=== PATIENT | male | born 1950 | race Caucasian/White ===

== ENCOUNTER → 2016-11-03 | Outpatient (CLI) | payer BC ==
[~2016-11-03] MED LIST: 3N1 COMMODE MC; CEFT2VIA11 IV; CHOL200043 PO; CYAN100018 PO; GABA300C16 PO; LOV30I SC; NIAC500T81 PO; OXYC-481 PO; VALS160T20 PO; WALK1EAC23 MC
--- NOTE | 2016-11-03 17:15 | RADRPT ---
PROCEDURE: XR Left hip and pelvis. CLINICAL INDICATION: Left hip pain and pelvic pain. TECHNIQUE: 3 views. Frontal pelvis. Frontal and lateral left hip. COMPARISON: 07/17/2016. FINDINGS: There are bilateral total hip arthroplasties. These appear satisfactory. There is a healing fractu re of the upper shaft of the left femur overlying the femoral stem of the left hip arthroplasty. Ce rclage wires are noted proximal to the fracture. There is no other fracture and there is no dislocation. The upper pelvis is not included on the images. There is no lytic or blastic lesion. IMPRESSION: 1. Bilateral total hip arthroplasties. 2. Fracture of the proximal shaft of the femur with mild healing noted at this site. 3. Upper pelvis not included on the images. RPTAT: QQ .Shivam Davenport MD, Date Time Electronically viewed and signed by .Shivam Davenport MD, MD on 11/03/2016 17:15 .R/
== END | disposition home or self-care (01) ==
LOC: HKI 15:41
PROVIDERS: ATTEND Orthopaedic Surgery
DX: T84.52XD Infection and inflammatory reaction due to internal left hip prosthesis, subsequent encounter (principal); Y83.8 Other surgical procedures as the cause of abnormal reaction of the patient, or of later complication, without mention of misadventure at the time of the procedure; Z79.01 Long term (current) use of anticoagulants
CPT/HCPCS: 73502; G0463

== ENCOUNTER → 2017-01-02 | Outpatient (CLI) | payer BC ==
--- NOTE | 2017-01-02 16:50 | RADRPT ---
PROCEDURE: XR pelvis. CLINICAL INDICATION: Hip pain TECHNIQUE: AP pelvis available for review. COMPARISON: 11/03/2016 FINDINGS: There are bilateral total hip replacements. There are cerclage wires surrounding the left femoral sh aft. There is normal mineralization, architecture and alignment. There is no evidence of loosening of th e prosthesis. There is no evidence of hardware failure. No fractures, dislocation or osseous lesions are identified. The joints are unremarkable. There are normal soft tissues. IMPRESSION: Bilateral total hip replacements. Otherwise unremarkable examination. RPTAT: HGDB .Edmund Rocha MD, MD Date Time Electronically viewed and signed by .Edmund Rocha MD, on 01/02/2017 16:50 .B/
--- NOTE | 2017-01-02 16:54 | RADRPT ---
PROCEDURE: XR left hip. CLINICAL INDICATION: Hip pain TECHNIQUE: AP and lateral views available for review. COMPARISON: None available FINDINGS: There is a left total hip replacement. There are cerclage wires surrounding the proximal femur. The re is no evidence of loosening of the prosthesis. There is no evidence of hardware failure. There is no change in the mild healing of the fracture of the upper shaft of the left femur distal to the ce rclage wires. No osseous lesions are present. The joints are unremarkable. The soft tissues are u nremarkable. IMPRESSION: No change in left total hip replacement. No change in cerclage wire surround proximal femur. No change in mild healing of the fracture of the upper shaft of the left femur distal to the cerclag e wires. RPTAT: HGDB .Edmund Rocha MD, Date Time Electronically viewed and signed by .Edmund Rocha MD, on 01/02/2017 16:53 .B/
== END | disposition home or self-care (01) ==
LOC: HKI 15:32
PROVIDERS: ATTEND Orthopaedic Surgery
DX: Z48.89 Encounter for other specified surgical aftercare (principal); T84.52XD Infection and inflammatory reaction due to internal left hip prosthesis, subsequent encounter; Z96.642 Presence of left artificial hip joint
CPT/HCPCS: 72170; 73502; G0463

== ENCOUNTER → 2017-02-20 | Outpatient (CLI) | payer BC ==
[~2017-02-20] MED LIST changes: +ENOX30DI2 SC; -LOV30I SC
--- NOTE | 2017-02-20 17:19 | RADRPT ---
PROCEDURE: XR pelvis/left hip. CLINICAL INDICATION: Hip pain TECHNIQUE: AP pelvis/AP and lateral left hip views available for review. COMPARISON: 08/15/2016 FINDINGS: There are bilateral total hip replacements. There is a long left femoral stem. There are cerclage wi res surrounding the proximal left femur. There is no change in the nondisplaced lateral left mid fem oral fracture. There is no evidence of loosening of the prosthesis. There is no evidence of hardware failure. The joints are unremarkable. There are normal soft tissues. IMPRESSION: Bilateral total hip replacements. No change in the nondisplaced lateral left femoral fracture Otherwise unremarkable examination. RPTAT: HGDB .Edmund Rocha MD, Date Time Electronically viewed and signed by .Edmund Rocha MD, on 02/20/2017 17:18 .B/
== END | disposition home or self-care (01) ==
LOC: HKI 16:00
PROVIDERS: ATTEND Orthopaedic Surgery
DX: T84.52XD Infection and inflammatory reaction due to internal left hip prosthesis, subsequent encounter (principal); Y79.2 Prosthetic and other implants, materials and accessory orthopedic devices associated with adverse incidents; Z96.643 Presence of artificial hip joint, bilateral
CPT/HCPCS: 73502; G0463

== ENCOUNTER → 2017-03-09 | Outpatient (CLI) | payer BC ==
[~2017-03-09] MED LIST changes: +MUPI15CR9 TOP; +PEN500 PO
== END | disposition home or self-care (01) ==
LOC: HKI 10:03
PROVIDERS: ATTEND Orthopaedic Surgery
DX: T84.52XD Infection and inflammatory reaction due to internal left hip prosthesis, subsequent encounter (principal); Z96.642 Presence of left artificial hip joint; Z96.651 Presence of right artificial knee joint
CPT/HCPCS: G0463

== ENCOUNTER 2017-03-19 09:07 | Inpatient (IN) | payer BC ==
[~2017-03-19] VITALS: Ht 177.8 cm; Wt 99.8 kg
[2017-03-19] VITALS (64 sets, daily range): BP systolic 75–129; BP diastolic 44–69; PULSE 70–87; RESP 10–22
[~2017-03-19 09:07] MED LIST changes: +BUPIVACAINE LIPOSOME/PF 266 MG/20 ML VIAL INFIL SCH; +CEFAZOLIN 1 GM INJ ONE; +EXPAREL NOTE (BUPIVICAINE LIPOSOMAL) XX SCH; +LACTATED RINGER'S 1,000 ML IV SCH; -MUPI15CR9 TOP; +ONDANSETRON 4 MG INJ IV SCH; +PAIN COCKTAIL - VANCOMYCIN IRR SCH; -PEN500 PO; +PHENYLephrine (100 MCG/ML) 5ML SYG ONE; +PREGABALIN 300 MG PO X1 PO SCH; +TRANEXAMIC ACID 1,000 MG in SOD CHLORIDE 0.9% 100 ML IVPB SCH; +TRANEXAMIC ACID 1,000 MG in SOD CHLORIDE 0.9% 90 ML IV SCH; +VANCOMYCIN 1 GM/NS 250 ML X1 BEFORE INCISION IVPB SCH; +oxyCODONE (CR) 10 MG TAB [oxyCONTIN] X1 DOSE PO SCH; +traMADOL 50 MG TAB X 1 DOSE PO SCH
[2017-03-19] MEDS ORDERED: CEFAZOLIN 1 GM INJ ONE ×2 (09:56→17:13)
[2017-03-19] MEDS ORDERED: ONDANSETRON 4 MG INJ ONE (09:56)
[2017-03-19] MEDS ORDERED: MIDAZOLAM 1 MG/ML 2 ML INJ ONE (09:56)
[2017-03-19] MEDS ORDERED: GLYCOPYRROLATE 0.4 MG INJ ONE (09:56)
[2017-03-19] MEDS ORDERED: ROCURONIUM 50 MG INJ ONE (09:56)
[2017-03-19] MEDS ORDERED: PROPOFOL 20 ML ONE (09:56)
[2017-03-19] MEDS ORDERED: FENTAnyl 50 MCG/ML VIAL ONE (09:56)
[2017-03-19] MEDS ORDERED: NEOSTIGMINE 3 MG/3 ML SYRINGE ONE (09:56)
[2017-03-19] MEDS ORDERED: DEXAMETHASONE 4 MG/ML 1 ML INJ ONE (09:57)
[2017-03-19] MEDS ORDERED: ETOMIDATE 20 MG INJ ONE (09:57)
[2017-03-19] MEDS ORDERED: PROPOFOL 100 ML ONE (09:57)
[2017-03-19] MEDS ORDERED: PEN500 PO (10:05)
[2017-03-19] MEDS ORDERED: MUPI15CR9 TOP (10:06)
--- NOTE | 2017-03-19 11:24 | HPN ---
Date/Time of Note Date/Time of Note DATE: 03/19/17 TIME: 11:23 Interval H&P Admission Note Pt. seen H&P reviewed: No system changes No change from H&P on 03/12/17 by GONZALO Lehman MD Mar 19, 2017 11:24
[2017-03-19] MEDS ORDERED: POLYMYXIN B 500000 UNIT INJ ONE (11:41)
[2017-03-19] MEDS ORDERED: SODIUM CL BACTERIOSTATIC 30 ML INJ ONE (11:41)
[2017-03-19] MEDS ORDERED: TOBRAMYCIN 1.2 GM POWDER ONE (11:41)
[2017-03-19] MEDS ORDERED: VANCOMYCIN 1 GM INJ ONE (11:41)
[2017-03-19] MEDS ORDERED: HEPARIN 1000 UNITS/ML 10 ML INJ ONE (11:42)
[2017-03-19] MEDS ORDERED: BACITRACIN 50000 UNITS INJ ONE (11:56)
[2017-03-19] MEDS: traMADol 50 MG TAB PO SCH ×2 (12:00→18:00)
[2017-03-19] MEDS ORDERED: TRIMETHOBENZAMIDE 100 MG/ML VIAL IM PRN (13:30)
[2017-03-19] MEDS ORDERED: DIPHENHYDRAMINE 50 MG INJ IV PRN (13:30)
[2017-03-19] MEDS ORDERED: OXYCODONE/ACETAMINOPHEN (5/325) TAB PO PRN ×2 (13:30)
[2017-03-19] MEDS ORDERED: EPHEDrine SULFATE 50 MG/5 ML SYG IV PRN (13:30)
[2017-03-19] MEDS ORDERED: ONDANSETRON 4 MG INJ IV PRN ×2 (13:30→19:00)
[2017-03-19] MEDS ORDERED: LABETALOL HCL 20MG INJ IV PRN (13:30)
[2017-03-19] MEDS ORDERED: HYDROmorphONE (0.2 MG/ML) 10ML SYG IV PRN ×3 (13:30)
[2017-03-19] MEDS ORDERED: MEPERIDINE 25 MG INJ IV PRN (13:30)
[2017-03-19] MEDS ORDERED: hydrALAzine 20 MG INJ IV PRN (13:30)
[2017-03-19] MEDS ORDERED: FENTAnyl 50 MCG/ML VIAL IV PRN ×3 (13:30)
[2017-03-19] MEDS ORDERED: MIDAZOLAM 1 MG/ML 2 ML INJ IV PRN (13:30)
[2017-03-19] MEDS ORDERED: ALBUMIN HUMAN 5% 500 ML ONE (17:13)
[2017-03-19] MEDS ORDERED: ALBUMIN HUMAN 25% 100 ML ONE (17:13)
[2017-03-19] MEDS: LACTATED RINGER'S 1,000 ML IV SCH (18:57)
[2017-03-19] MEDS ORDERED: MAGNESIUM HYDROXIDE 30ML CUP PO PRN (19:00)
[2017-03-19] MEDS ORDERED: HYDROCODONE/APAP (5/325) TAB PO PRN (19:00)
[2017-03-19] MEDS ORDERED: HYDROmorphONE 1 MG/ML SYG IV PRN (19:00)
[2017-03-19] MEDS ORDERED: BISACODYL 10 MG SUPP PR PRN (19:00)
[2017-03-19] MEDS ORDERED: NACL 0.9% 3 ML SYG IV SCH (19:00)
[2017-03-19] MEDS ORDERED: NA PHOSPHATE/BIPHOS 133 ML ENEMA PR PRN (19:00)
[2017-03-19] MEDS ORDERED: DIPHENHYDRAMINE 25 MG CAP PO PRN (19:00)
--- NOTE | 2017-03-19 19:32 | OPR ---
Date/Time of Note Date/Time of Note DATE: 03/19/17 TIME: 19:30 Operative Report Free Text/Dictation Dictation # [id number] Preoperative Diagnosis S/P Removal of Infected Left Revision JUANCARLOS and placement of ABX PMMA Spacer Postoperative Diagnosis Same Operation/Procedure Performed I&D Left Hip, Removal of ABX PMMA Spacer, and Reimplantation Left JUANCARLOS with allograft supplementation Surgeon: GONZALO MCCRACKEN MD credentialing assistant: ANIA ARCOS PA-C Anesthesia: general, spinal Estimated Blood Loss: other Specimens Aerobic and anaerobic cultures x 5 Grafts/Implants Depuy Pinnace Cup, Biomet DEBO Stem Complications: None GONZALO MCCRACKEN MD Mar 19, 2017 19:32
--- NOTE | 2017-03-19 19:37 | PN ---
Date/Time of Note Date/Time of Note DATE: 03/19/17 TIME: 19:32 Assessment/Plan Lines/Catheters IV Catheter Type (from Nrsg): Saline Lock Assessment/Plan Assessment/Plan Stable in PACU, s/p left hip I&D, removal of abx spacer, re-implantation left JUANCARLOS -continue Vancomycin IV and penicillin PO -pain meds as needed -Comadin 3mg tonight -SCDs BLE for DVT prophylaxis -check AM labs including INR -posterior hip precautions -OOB with PT - TDWB -remove marmolejo in AM XR of the left hip shows good alignment. The strut is in appropriate position. No fractures or dislocations identified Subjective 24 Hr Interval Summary Stable in PACU. Denies pain. Moving all extremities. Drowsy from anesthesia. Exam/Review of Systems Vital Signs Vitals Vital Signs Date Time Temp Pulse Resp B/P Pulse Ox O2 Delivery O2 Flow Rate FiO2 03/19/17 19:16 Nasal Cannula 4.0 03/19/17 19:10 98.7 03/19/17 11:01 72 16 129/69 93 Exam Free Text/Dictation Hemovac: minimal Dressing dry Incision clean, dry, and intact without redness or drainage 5/5 Quadriceps, Tibialis Anterior, EHL, Gastroc, Soleus, Peroneals Normal sensation Palpable DT/PT, CR <2 sec No distal edema ANIA ARCOS PA-C Mar 19, 2017 19:37
[2017-03-19 19:46] LABS: HEMATOCRIT 26.9 % (42.0-52.0); HEMOGLOBIN 9.1 g/dl (14.0-18.0)
--- NOTE | 2017-03-19 19:55 | RADRPT ---
PROCEDURE: XR Pelvis. CLINICAL INDICATION: Pelvic pain. Postoperative evaluation TECHNIQUE: Single AP view of the pelvis was obtained. COMPARISON: 03/18/2017 FINDINGS: A right hip arthroplasty is incompletely visualized. A left hip arthroplasty is also seen. Radiopa que structures are seen within the surgical bed. Skin odalys are seen with soft tissue air. The r emaining soft tissue structures are intact. IMPRESSION: 1. Status post left hip arthroplasty with the suggestion of a antibiotic beads an acute postoperati ve changes. 2. Right hip arthroplasty identified. RPTAT: HPNM Physician Cyndy Date Time Electronically viewed and signed by Physician Cyndy on 03/19/2017 19:54 /
--- NOTE | 2017-03-19 19:58 | RADRPT ---
PROCEDURE: XR Hip. CLINICAL INDICATION: Left hip pain. Postoperative evaluation TECHNIQUE: 2 views of the left hip were obtained. COMPARISON: 01/02/2017 FINDINGS: A left hip arthroplasty is seen once again. Additional cerclage wires are seen in the distal portion of the hip arthroplasty. No acute fracture or dislocation is seen. Radiopaque structures are seen along the surgical bed as well as a drain. Skin odalys are seen with soft tissue air. The osseous structures are well mineralized. The remaining soft tissue structures are intact. IMPRESSION: Left hip arthroplasty identified with the suggestion of antibiotic beads with acute postoperative ch anges. RPTAT: HPNM Physician Cyndy Date Time Electronically viewed and signed by Physician Cyndy on 03/19/2017 19:57 /
[2017-03-19] MEDS ORDERED: WARFARIN 3 MG TAB PO ONE (20:00)
[2017-03-19 20:47] LABS: CALCIUM 8.5 mg/dl (8.4-10.2); CREATININE 1.07 mg/dl (0.61-1.24); POTASSIUM 4.6 mmol/L (3.5-5.1)
[2017-03-19] MEDS ORDERED: VANCOMYCIN 1 GM (PMX) 250 ML IVPB SCH (21:00)
--- NOTE | 2017-03-19 21:56 | OPR ---
DATE OF OPERATION: 03/19/2017 PREOPERATIVE DIAGNOSIS: Status post removal of infected revision left total hip arthroplasty and pl acement of antibiotic-impregnated cement spacer. POSTOPERATIVE DIAGNOSIS: Status post removal of infected revision left total hip arthroplasty and p lacement of antibiotic-impregnated cement spacer. OPERATION PERFORMED: 1. Irrigation and debridement, left hip. 2. Removal of antibiotic-impregnated cement spacer. 3. Reimplantation left total hip arthroplasty with allograft supplementation. SURGEON: Gonzalo Koo MD WATCH COMMANDER: BULMARO Barbosa COMPONENTS USED: DePuy size 60 mm Gription Weldon cup, two 6.5 mm screws, 60/40 neutral Altrx bharat yethylene liner, Biomet DEBO 20 x 250 mm STS ETO stem, D x 60 standard proximal cone body, 40+9 cob alt chrome femoral head, multiple Tamika cerclage cables, allograft femoral strut. ANESTHESIA: Spinal plus general endotracheal intubation plus periarticular injection. ANESTHESIOLOGIST: Dr. Marley. ESTIMATED BLOOD LOSS: 800 mL. INTRAVENOUS FLUIDS: 5 liters crystalloid, 300 mL of autologous Cell Saver blood, 500 mL of albumin. SPECIMENS: Aerobic and anaerobic culture of joint fluid x2, acetabular synovial tissue, femoral can al tissue x2. DRAINS: Hemovac x2. COMPLICATIONS: None. DISPOSITION: The patient tolerated the procedure well and was taken to the recovery room in stable condition. 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 He had a revision about a couple of years ago that subsequently became infected. I removed the revision stem and placed an antibiotic impregnated cement spacer, about 8 months ago. He was treated with intravenous antibiotics and then oral penicillin for the last 6 mon ths. His serologic markers normalized. He was felt to be ready to be reimplanted. He was cleared by medicine and vascular surgery and the infectious disease specialist. He had a previous pulmonary embolism, but has been off anticoagulants for many months. He has an IVC filter in place. The ris ks of the surgery were explained to include but not be limited to bleeding and possible need for blo od transfusion, infection, pain, stiffness, neurovascular injury, possible numbness, weakness, and/o r paralysis anywhere from the hip down to the toes, fracture, malunion, nonunion, wound healing prob lems, leg length discrepancy, instability, dislocation, need for additional future surgery including removal of the implant and permanent resection arthroplasty, possible loss of limb including hip di sarticulation, blood clots, pulmonary embolism, and anesthetic complications such as heart attack, s troke, GI bleed, pneumonia, and/or . Ample time was allowed for the patient to ask questions, all of which were addressed and answered. He understood the risks involved and wished to proceed. Informed consent was signed prior to the procedure. PROCEDURE: The left hip was initialed with a marking pen in the preoperative holding area to identi fy the correct operative site. The patient was then brought to the operating room and transferred f rom the [facility] to the operating room table where he was administered a spinal anesthetic an d then anesthetized and intubated. He was given 1 gram of vancomycin and 3 grams of intravenous Anc ef within 1 hour prior to incision. Giraldo catheter was placed. A timeout was performed to confirm the left side was the correct operative site. He was turned in lateral decubitus position with the left side up. An axillary roll was placed under the right chest wall. [facility] and all bony prominences were well padded. The left hip and lower extremity were prepped and d raped in usual sterile fashion. The previous posterolateral scar was excised. This was carried down to subcutaneous tissue and fat with sharp dissection. The iliotibial band and gluteus luis a muscle fascia were incised along the length of the wound. The gluteus luis a muscle fibers were bluntly split. The posterior capsule and short external rotator sleeve had been scarred down and was taken down off the posterior aspect of the greater trochanter and tagged with #1 PDS suture. The synovial fluid was inspected and noted to be normal in color and consistency and was swabbed for aerobic and anaerobic culture x2. The re mainder of the soft tissue sleeve was elevated off the posterior aspect of the greater trochanter an d femur. The vastus lateralis was elevated off the posterior intermuscular septum. The perforating arteries were identified and tied off with 2-0 silk suture and ligated. The vastus lateralis was e levated off the femur. The previous 4 cables were cut and removed. The defect laterally was visual ized. The head was dislocated from the acetabulum and the cement spacer was removed from the femora l canal. Fibrous tissue was removed with the Sang back front desk administrator instruments. There was a dist al cement plug that had broken off on the cement spacer that I had to retrieve. The proximal portio n of the femur was moving relative to the distal femur, suggesting that the defect had fractured and was not healed. I freed up the proximal segment to gain more direct access towards the distal aspe ct of the femur. The [place] Ultra-Drive was used to thread a guide pin into the distal cement fragm ent and then I backslapped this out. I then placed a beaded guidewire down into the distal femur an d overreamed with flexible reamers up to 18 mm, getting good chatter. At this point, attention was turned towards the acetabulum. The retractors were placed around the acetabulum, the polyethylene l iner was removed with an osteotome, and the cement was removed with osteotomes. I then reamed the a cetabulum, going up from a 57 reamer to a 62 reamer. A 64 mm Gription Weldon cup was opened and i mpacted into the acetabulum and sat flush circumferentially, getting a good bite. This had about 45 degrees of abduction and 20 to 25 degrees of anteversion. Two 6.5 screws were drilled and filled t o appropriate length, getting a good bites. A trial liner was placed into position. The attention was turned back towards the femur. I then overreamed with the [employer] tapered reamers up to a size 2 0. I then opened the size 20 x 250 bowed STS ETO stem and impacted this into the femur, keeping the kink of the bow anterior relative to the femoral cortex. This was impacted such that the proximal etch marking was at 60 relative to the tip of the greater trochanter. This got excellent bite. C-a rm imaging confirmed that the stem was in good position on AP and lateral views. Prior to placing t he stem, I passed 2 cables prophylactically around the femur at the apex of the bow to prevent any p ossible fracture. At this point, a trial 60 x D standard body was placed on the stem, keeping it an teverted 20 to 25 degrees relative to the tibia pointing towards the ceiling. A 40[address] d on the trunnion and reduced the acetabulum. Hip was taken through range of motion and was quite s table. The hip had 110 degrees of flexion. At 90 degrees of flexion and neutral abduction, the hip was stable posteriorly to 80 degrees of internal rotation. In the position of sleep, it was stable to 80 degrees of internal rotation. The hip came to full extension with no posterior impingement o r anterior instability. The Ran[place]at sign showed a combined forward flexion of 45 degrees. Leg chai ths were palpated to be equal. At this point, the trial was dislocated, the trial liner removed. A n apex hole eliminator was placed. The real polyethylene liner was opened and impacted into the brad tabulum and sat flush circumferentially. The trial body was removed and the real body was opened an d impacted onto the stem and this was kept anteverted about 20 to 25 degrees relative to the tibia p ointing towards the ceiling. This was tightened down and torqued off with the setscrew. The trunni on was irrigated and dried and the real 40+9 cobalt chrome head was impacted on the trunnion and red uced in the acetabulum. The hip was taken through a range of motion and had the same range of motio n and stability with the trials. The entire wound was irrigated with Betadine, peroxide, and antibi otic saline pulsatile lavage. Please note that prior to placing any of the real components I had al so irrigated another round with Betadine, peroxide, and antibiotic saline pulsatile lavage. At this point, the lateral defect of the femur was inspected and packed with demineralized bone matrix and then an allograft femoral strut was opened and fashioned and placed over the lateral cortex of the f emur to span this defect and tensioned with 2 cables proximal and distal to the defect. Another cab le was passed around the proximal femur where the extended trochanteric osteotomy had previously bee n to ensure that this did not separate. At this point, Stimulan beads with vancomycin and tobramyci n mixed and placed in the deep portion of the wound and brought out the anterolateral thigh. The He movac drain was placed in the deep portion of the wound and brought out the anterolateral thigh. Th e vastus lateralis was repaired back to the posterior intermuscular septum with a running #2 Strataf ix. The posterior capsule short external rotators were repaired back to the greater trochanter thro ugh drill holes and #2 PDS. The iliotibial band was repaired with interrupted #1 PDS and then a run ashley #2 Stratafix. The gluteus luis a fascia was repaired with a running #2 Stratafix. The subcut aneous layer was closed over a second drain and was closed with 2-0 Stratafix. The subcutaneous lay er was closed with 3-0 Vicryl, and odalys on the skin. Skin edges were sealed with Dermabond. The drains were secured with 3-0 nylon. Sponge and needle counts were correct at the end of case. The wound was covered with silver Mepilex. The patient was awakened, extubated, taken out of the [facility], and transferred to the [facility] in stable condition with an abduction pillow between his legs. He was awakened, extubated, and taken to the recovery room in stable condition. Dictated By: GONZALO SEWELL/NTS Conf#: [id number] DID#: [id number]
[2017-03-19] MEDS ORDERED: TRANEXAMIC ACID 1,000 MG in SOD CHLORIDE 0.9% 100 ML IVPB ONE (22:00)
[2017-03-19] MEDS: PREGABALIN 50 MG CAP PO SCH (23:02)
[2017-03-19] MEDS: PENICILLIN V K 250 MG TAB PO SCH (23:02)
[2017-03-19] MEDS: DOCUSATE SODIUM 100 MG CAP PO SCH (23:02)
[2017-03-20] VITALS (41 sets, daily range): BP systolic 82–140; BP diastolic 43–93; PULSE 70–83; RESP 10–20
[2017-03-20] MEDS ORDERED: TRANEXAMIC ACID 1,000 MG in SOD CHLORIDE 0.9% 100 ML IVPB ONE (01:00)
[2017-03-20] MEDS: LACTATED RINGER'S 1,000 ML IV SCH (02:57)
[2017-03-20] MEDS: traMADol 50 MG TAB PO SCH ×5 (06:00→22:43)
[2017-03-20] MEDS: PANTOPRAZOLE (EC) 40 MG TAB PO SCH ×2 (06:13→18:08)
[2017-03-20 07:18] LABS: HEMATOCRIT 28.7 % (42.0-52.0); HEMOGLOBIN 9.5 g/dl (14.0-18.0)
[2017-03-20 07:36] LABS: INR 1.37; PROTIME 16.9 Sec (12.2-14.2); PT RATIO 1.3
[2017-03-20 07:42] LABS: CALCIUM 8.6 mg/dl (8.4-10.2); CREATININE 1.19 mg/dl (0.61-1.24)
[2017-03-20 07:46] LABS: POTASSIUM 5.1 mmol/L (3.5-5.1)
--- NOTE | 2017-03-20 08:52 | PN ---
Date/Time of Note Date/Time of Note DATE: 03/20/17 TIME: 08:50 Assessment/Plan Lines/Catheters IV Catheter Type (from Nrsg): Saline Lock Assessment/Plan Assessment/Plan Stable in ICU, s/p left hip I&D, removal of abx spacer, re-implantation left JUANCARLOS -continue Vancomycin IV and penicillin PO. Will Consult Dr. Fletcher for his guidance on meds -pain meds as needed -hold coumadin today -check H&H and PT/INR at 1500 today -SCDs BLE for DVT prophylaxis -check AM labs including INR -posterior hip precautions -OOB with PT - TDWB -will plan to keep in ICU today to monitor VS, H&H Subjective 24 Hr Interval Summary No acute overnight events. H&H stable after 2 units PRCCs. BP still somewhat low but patient asymptomatic. Denies significant hip pain. Large output from the drain. Exam/Review of Systems Vital Signs Vitals Vital Signs Date Time Temp Pulse Resp B/P Pulse Ox O2 Delivery O2 Flow Rate FiO2 03/20/17 06:16 77 16 139/68 95 2.0 03/20/17 06:00 Nasal Cannula 03/20/17 04:00 97.6 Intake and Output 03/19/17 03/19/17 03/20/17 15:00 23:00 07:00 Intake Total 5000 ml 600 ml 650 ml Output Total 2305 ml 920 ml Balance 5000 ml -1705 ml -270 ml Exam Free Text/Dictation Hemovac: 775cc Dressing dry Incision clean, dry, and intact without redness or drainage 5/5 Quadriceps, Tibialis Anterior, EHL, Gastroc, Soleus, Peroneals Normal sensation Palpable DT/PT, CR <2 sec No distal edema Results Result Diagram: 03/20/1760403/20/17604 ANIA ARCOS PA-C Mar 20, 2017 08:52
[2017-03-20] MEDS: PREGABALIN 50 MG CAP PO SCH ×2 (09:00→21:00)
[2017-03-20] MEDS ORDERED: VALSARTAN 160 MG TAB PO SCH (09:00)
[2017-03-20] MEDS: DOCUSATE SODIUM 100 MG CAP PO SCH ×2 (09:52→20:59)
[2017-03-20] MEDS: VANCOMYCIN 1 GM (PMX) 250 ML IVPB SCH ×2 (09:52)
[2017-03-20 10:06] LABS: ADD UMIC YES; UR BILIRUBIN (Dip) NEGATIVE (NEGATIVE); UR BLOOD (Dip) 1+ (NEGATIVE); UR CLARITY CLEAR (CLEAR); UR COLOR LT. YELLOW (YELLOW); UR GLUCOSE (Dip) NEGATIVE (NEGATIVE); UR KETONES (Dip) NEGATIVE (NEGATIVE); UR LEUKOCYTE ESTERASE (Dip) NEGATIVE (NEGATIVE); UR NITRITE (Dip) NEGATIVE (NEGATIVE); UR TOTAL PROTEIN (Dip) NEGATIVE (NEGATIVE); UR UROBILINOGEN (Dip) 0.2 E.U./dL (0.1-1.0)
[2017-03-20] MEDS: PREGABALIN 25 MG CAP PO SCH ×2 (10:34→20:59)
[2017-03-20] MEDS: PENICILLIN V K 250 MG TAB PO SCH ×2 (10:35→20:59)
--- NOTE | 2017-03-20 11:43 | CONS ---
Date/Time of Note Date/Time of Note DATE: 03/20/17 TIME: 11:33 Assessment/Plan Assessment/Plan Chief Complaint/Hosp Course 1) L hip re-implantion continue with IV vanco, till cx are neg pt to be maintained on oral pcn for several years L hip cx are NGTD 2) anemia, s/p surgery pt getting hgb checked again in a few hours Problems: Consultation Date/Type/Reason Admit Date/Time Mar 19, 2017 at 09:07 Date of Consultation: Mar 20, 2017 Type of Consultation: ID Hx of Present Illness pt was admitted for L hip re-implantation no prior F, C, NS No pain to R hip currently he has some light headedness but no dizziness, BRASWELL, CP, abd pain Past Surgical History Past Surgical Hx: other Social History Smoking Status: Never smoker Exam/Review of Systems Vital Signs Vitals Vital Signs Date Time Temp Pulse Resp B/P Pulse Ox O2 Delivery O2 Flow Rate FiO2 03/20/17 08:00 77 03/20/17 06:16 16 139/68 95 2.0 03/20/17 06:00 Nasal Cannula 03/20/17 04:00 97.6 Intake and Output 03/19/17 03/19/17 03/20/17 15:00 23:00 07:00 Intake Total 5000 ml 600 ml 650 ml Output Total 2305 ml 920 ml Balance 5000 ml -1705 ml -270 ml Exam Constitutional: alert, oriented Head: normocephalic Eyes: nl sclera ENMT: mucosa pink and moist Respiratory: clear to auscultation Cardiovascular: regular rate and rhythm Gastrointestinal: non-tender, soft Extremities: other (L hip is bandaged, drains are present with bloody drainage noted) Results Result Diagram: 03/20/17 0605 03/20/17 0605 Results 24 hrs Laboratory Tests Test 03/19/17 19:30 03/20/17 05:17 03/20/17 06:05 03/20/17 06:15 Hemoglobin 9.1 L 9.5 L Hematocrit 26.9 L 28.7 L Sodium Level 140 138 Potassium Level 4.6 5.1 Chloride Level 111 H 109 Carbon Dioxide Level 17 L 21 Anion Gap 17 H 13 Blood Urea Nitrogen 20 22 H Creatinine 1.07 1.19 Glucose Level 227 H 160 Calcium Level 8.5 8.6 Lab Scanned Report REFERENCE LAB Prothrombin Time 16.9 H Prothrombin Time Ratio 1.3 INR International Normalized Ratio 1.37 Urine Color LT. YELLOW Urine Clarity CLEAR Urine pH 6.0 Urine Specific [place] 1.025 Urine Ketones NEGATIVE Urine Nitrite NEGATIVE Urine Bilirubin NEGATIVE Urine Urobilinogen 0.2 E.U./dL Urine Leukocyte Esterase NEGATIVE Urine Microscopic RBC 2-5 Urine Microscopic WBC 0-2 Urine Epithelial Cells RARE Urine Hemoglobin 1+ H Urine Glucose NEGATIVE Urine Total Protein NEGATIVE Medications Medications Current Medications Miscellaneous Information 1 ea NOTE XX ; Start 03/19/17 at 07:00; Stop 03/23/17 at 06:59 Penicillin V Potassium (Penicillin V K) 500 mg BID PO Last administered on 03/20 10:35; Admin Dose 500 MG; Start 03/19/17 at 21:00 Valsartan 160 mg 160 mg DAILY PO ; Start 03/20/17 at 09:00 Lactated Ringer's (Lr) 1,000 ml @ 125 mls/hr Q8H IV Last administered on 02:57; Admin Dose 125 MLS/HR; Start 03/19/17 at 18:57 Tramadol HCl (Ultram) 50 mg Q6 PO ; Start 03/19/17 at 12:00; Stop 03/22/17 at 11 :59 Acetaminophen/ Hydrocodone Bitart (Marvin (5/325)) 1 tab Q4H PRN PO PAIN LEVEL 1 -3; Start 03/19/17 at 19:00 Acetaminophen/ Hydrocodone Bitart (Marvin (5/325)) 2 tab Q4H PRN PO PAIN LEVEL 4 -7; Start 03/19/17 at 19:00 Hydromorphone HCl (Dilaudid) 1 mg Q3H PRN IV PAIN LEVEL 8-10; Start 03/19/17 at 19:00 Ondansetron HCl (Zofran Inj) 4 mg Q6H PRN IV NAUSEA AND/OR VOMITING; Start at 19:00 Bisacodyl (Dulcolax Supp) 10 mg Q12H PRN [place] CONSTIPATION; Start 03/19/17 at 19: 00 Magnesium Hydroxide (Milk Of Mag) 30 ml BID PRN PO CONSTIPATION; Start at 19:00 Sodium Biphosphate/ Sodium Phosphate (Fleet Enema) 133 ml DAILY PRN [place] CONSTIPATION; Start 03/19/17 at 19:00 Docusate Sodium (Colace) 100 mg BID PO Last administered on 03/20/17 09:52; Admin Dose 100 MG; Start 03/19/17 at 21:00 Diphenhydramine HCl (Benadryl) 25 mg Q6H PRN PO PRURITUS; Start 03/19/17 at 19: 00 Pantoprazole (Protonix Tab) 40 mg BID@,18 PO Last administered on 03/20/17 06:13; Admin Dose 40 MG; Start 03/20/17 at 06:00 Pregabalin (Lyrica) 50 mg BID PO Last administered on 03/19/17 23:02; Admin Dose 50 MG; Start 03/19/17 at 21:00 Pregabalin (Lyrica) 50 mg BID PO Last administered on 03/20/17 10:34; Admin Dose 50 MG; Start 03/20/17 at 10:00 ALISHA SANDOVAL MD Mar 20, 2017 11:43
[2017-03-20] MEDS: SOD CHLORIDE 0.9% 1,000 ML IV SCH ×3 (12:09→22:43)
--- NOTE | 2017-03-20 12:37 | CONS ---
DATE OF ADMISSION: 03/19/2017 DATE OF CONSULTATION: 03/20/2017 TYPE OF CONSULTATION: Medical REASON FOR CONSULTATION: History of hypertension and now hypotensive. HISTORY OF PRESENT ILLNESS: This 66-year-old man is now in the ICU after undergoing a left total hip replacement by Dr. Koo yesterday. The patient has a rather long complicated history with regard to the left hip. The patient originally underwent a left total hip replacement in 09/[address] Koo. The patient previously had had a right total hip replacement. 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 The hip continued to be infected and the prosthesis was removed in 05/2015. Then, in 10/2015 after receiving antibiotics, the left hip was replaced with another prosthesis. The patient tolerated the procedure well; however, this second hip prosthesis became infected and it was removed in 07/2016. The patient after that received intravenous antibiotics. There is a note on the chart from Dr. Real Fletcher, which says that the patient received ceftriaxone for Strep anginosus. 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 The patient is now in the intensive care unit after undergoing the third total hip replacement. The patient is awake and alert. He denies pain. He denies any chest pain or shortness of breath. The patient' s blood pressure has been low of in terms of him having a history of hypertension. The patient is perfusing and his urine output is good. PAST MEDICAL HISTORY: Remarkable for hypertension. He was on Diovan 160 mg a day. He has received 5 units of blood both intraoperatively and postoperatively. PHYSICAL EXAMINATION: GENERAL: At this time reveals a well-developed man in no apparent distress. VITAL SIGNS: Temperature 98.2, pulse is 74, blood pressure 87/49, O2 saturation is 96% on 2 liters nasal cannula. HEENT: Head normocephalic. Eyes: Extraocular muscles intact. Nose and mouth are normal. NECK: Supple. No neck vein distention. LUNGS: Clear to auscultation. HEART: Regular rhythm. No murmurs, gallops or rubs. ABDOMEN: Soft, nontender, no masses or megaly. EXTREMITIES: No peripheral edema. He does have a drainage catheter in his left hip. IMPRESSION: This 66-year-old man is now postop a left total hip replacement. He has had 2 prior left hip prostheses placed. They both became infected. This is now his third total hip replacement. The patient is hypotensive. He is perfusing and has a good urine output at this time. He has lost blood during the surgical procedure and has received a total of 5 units of blood after and during surgery. The patient has a history of hypertension. PLAN: 1. Stat chest x-ray to assess central volume. 2. IV fluids as needed to maintain adequate blood pressure. 3. Hemoglobin and hematocrit are going to be rechecked and blood transfused as needed. 4. Continue ICU care for now until he is hemodynamically stable. 5. Infectious disease consultation with Dr. Fletcher and he will handle antibiotic treatment. 6. I will follow the patient along with you. Dictated By: JORGE CLAY MD, ND/NICKOLAS Conf#: [id number] YARIEL#: [id number] CHRISTIANA
--- NOTE | 2017-03-20 12:58 | RADRPT ---
PROCEDURE: XR Chest. CLINICAL INDICATION: Cough. TECHNIQUE: Single frontal view. COMPARISON: 08/07/2016. FINDINGS: There are low lung volumes and mild atelectasis at the lung bases. The lungs are otherwise clear. The heart size is normal. There is no pleural effusion. There is no pneumothorax. IMPRESSION: 1. Low lung volumes and mild atelectasis at the lung bases. 2. Otherwise normal chest radiograph. RPTAT: QQ .Shivam Davenport MD, MD Date Time Electronically viewed and signed by .Shivam Davenport MD, MD on 03/20/2017 12:58 .R/
[2017-03-20 15:15] LABS: HEMATOCRIT 27.2 % (42.0-52.0)
[2017-03-20 15:30] LABS: INR 1.34; PROTIME 16.7 Sec (12.2-14.2); PT RATIO 1.3
[2017-03-21] VITALS (12 sets, daily range): BP systolic 105–136; BP diastolic 55–75; PULSE 72–83; RESP 16–18
[2017-03-21 05:15] LABS: ADD SCAN DIFF NO
[2017-03-21 05:44] LABS: INR 1.31; PROTIME 16.4 Sec (12.2-14.2); PT RATIO 1.3
[2017-03-21] MEDS: traMADol 50 MG TAB PO SCH ×4 (05:49→23:34)
[2017-03-21] MEDS: PANTOPRAZOLE (EC) 40 MG TAB PO SCH ×2 (05:49→17:28)
[2017-03-21 05:53] LABS: CALCIUM 9.4 mg/dl (8.4-10.2); CREATININE 1.08 mg/dl (0.61-1.24); POTASSIUM 4.3 mmol/L (3.5-5.1)
[2017-03-21 06:10] LABS: ABNORMAL IP MESSAGE 1; BASOPHILS % 0.1 % (0.0-2.0); EOSINOPHILS % 0.3 % (0.0-7.0); LYMPHOCYTES # 0.7 10^3/ul (0.8-2.9); LYMPHOCYTES % 5.5 % (15.0-51.0); MEAN CORPUSCULAR HEMOGLOBIN 31.5 pg (29.0-33.0); MEAN CORPUSCULAR HGB CONC 33.3 g/dl (32.0-37.0); MEAN CORPUSCULAR VOLUME 94.4 fl (82.0-101.0); MEAN PLATELET VOLUME 12.2 fl (7.4-10.4); MONOCYTE # 1.6 10^3/ul (0.3-0.9); NEUTROPHIL # 9.7 10^3/ul (1.6-7.5); NEUTROPHILS % 80.5 % (39.0-77.0); RED BLOOD COUNT 2.86 10^6/ul (4.70-6.10); RED CELL DISTRIBUTION WIDTH 13.7 % (11.5-14.5); WHITE BLOOD COUNT 12.1 10^3/ul (4.8-10.8)
[2017-03-21] MEDS: SOD CHLORIDE 0.9% 1,000 ML IV SCH (06:24)
--- NOTE | 2017-03-21 06:40 | CONS ---
Date/Time of Note Date/Time of Note DATE: 03/21/17 TIME: 06:38 Assessment/Plan Assessment/Plan Chief Complaint/Hosp Course 1) L hip re-implantion continue with IV vanco, till cx are neg pt to be maintained on oral pcn for several years L hip cx are NGTD 03/21 - cx remain NGTD continue with vanco for another day 2) anemia, s/p surgery pt getting hgb checked again in a few hours 03/21 - Hgb is stable and pulse and B/P are good Problems: Consultation Date/Type/Reason Admit Date/Time Mar 19, 2017 at 09:07 Initial Consult Date 03/20/17 Type of Consultation: ID 24 HR Interval Summary Free Text/Dictation has pain (feels achey) to L hip IV take out of RUE due to RUE swelling no N, V, D, SOB Exam/Review of Systems Vital Signs Vitals Vital Signs Date Time Temp Pulse Resp B/P Pulse Ox O2 Delivery O2 Flow Rate FiO2 03/21/17 05:00 75 133/55 94 Room Air 03/21/17 04:00 98.7 17 03/20/17 11:00 2.0 Intake and Output 03/20/17 03/20/17 03/21/17 15:00 23:00 07:00 Intake Total 375 ml 615 ml 960 ml Output Total 925 ml 1200 ml 2500 ml Balance -550 ml -585 ml -1540 ml Exam Constitutional: alert, oriented Head: normocephalic Eyes: nl sclera ENMT: mucosa pink and moist Respiratory: clear to auscultation Cardiovascular: regular rate and rhythm Gastrointestinal: non-tender, soft Extremities: other (L hip no redness, vac pump and drains are present) Results Result Diagram: 03/21/17 0445 03/21/17 0445 Results 24 hrs Laboratory Tests Test 03/20/17 15:00 03/21/17 04:45 03/21/17 05:20 Hemoglobin 9.0 L 9.0 L Hematocrit 27.2 L 27.0 L Prothrombin Time 16.7 H 16.4 H Prothrombin Time Ratio 1.3 1.3 INR International Normalized Ratio 1.34 1.31 White Blood Count 12.1 #H Red Blood Count 2.86 L Mean Corpuscular Volume 94.4 Mean Corpuscular Hemoglobin 31.5 Mean Corpuscular Hemoglobin Concent 33.3 Red Cell Distribution Width 13.7 Platelet Count Pending Mean Platelet Volume 12.2 #H Neutrophils % 80.5 H Lymphocytes % 5.5 L Monocytes % 13.0 H Eosinophils % 0.3 Basophils % 0.1 Nucleated Red Blood Cells % 0.0 Neutrophils # 9.7 H Lymphocytes # 0.7 L Monocytes # 1.6 H Eosinophils # 0.0 Basophils # 0.0 Nucleated Red Blood Cells # 0.0 Sodium Level 139 Potassium Level 4.3 Chloride Level 110 Carbon Dioxide Level 22 Anion Gap 11 Blood Urea Nitrogen 16 Creatinine 1.08 Glucose Level 119 # Calcium Level 9.4 Lab Scanned Report BLOOD TRANSFUSION Medications Medications Current Medications Miscellaneous Information 1 ea NOTE XX ; Start 03/19/17 at 07:00; Stop 03/23/17 at 06:59 Penicillin V Potassium (Penicillin V K) 500 mg BID PO Last administered on 03/20 20:59; Admin Dose 500 MG; Start 03/19/17 at 21:00 Tramadol HCl (Ultram) 50 mg Q6 PO Last administered on 03/21/17 05:49; Admin Dose 50 MG; Start 03/19/17 at 12:00; Stop 03/22/17 at 11:59 Acetaminophen/ Hydrocodone Bitart ([place] (5/325)) 1 tab Q4H PRN PO PAIN LEVEL 1 -3; Start 03/19/17 at 19:00 Acetaminophen/ Hydrocodone Bitart ([place] (5/325)) 2 tab Q4H PRN PO PAIN LEVEL 4 -7; Start 03/19/17 at 19:00 Hydromorphone HCl (Dilaudid) 1 mg Q3H PRN IV PAIN LEVEL 8-10; Start 03/19/17 at 19:00 Ondansetron HCl (Zofran Inj) 4 mg Q6H PRN IV NAUSEA AND/OR VOMITING; Start at 19:00 Bisacodyl (Dulcolax Supp) 10 mg Q12H PRN [place] CONSTIPATION; Start 03/19/17 at 19: 00 Magnesium Hydroxide (Milk Of Mag) 30 ml BID PRN PO CONSTIPATION; Start at 19:00 Sodium Biphosphate/ Sodium Phosphate (Fleet Enema) 133 ml DAILY PRN [place] CONSTIPATION; Start 03/19/17 at 19:00 Docusate Sodium (Colace) 100 mg BID PO Last administered on 03/20/17 20:59; Admin Dose 100 MG; Start 03/19/17 at 21:00 Diphenhydramine HCl (Benadryl) 25 mg Q6H PRN PO PRURITUS; Start 03/19/17 at 19: 00 Pantoprazole (Protonix Tab) 40 mg BID@06,18 PO Last administered on 03/21/17 05:49; Admin Dose 40 MG; Start 03/20/17 at 06:00 Pregabalin (Lyrica) 50 mg BID PO Last administered on 03/19/17 23:02; Admin Dose 50 MG; Start 03/19/17 at 21:00 Pregabalin 50 mg 50 mg BID PO Last administered on 03/20/17 20:59; Admin Dose 50 MG; Start 03/20/17 at 10:00 Sodium Chloride (NS) 1,000 ml @ 125 mls/hr Q8H IV Last administered on 06:24; Admin Dose 125 MLS/HR; Start 03/20/17 at 12:00 ALISHA SANDOVAL MD Mar 21, 2017 06:40
[2017-03-21 08:36] LABS: PLATELET COUNT 128 10^3/UL (140-415)
[2017-03-21] MEDS: DOCUSATE SODIUM 100 MG CAP PO SCH ×2 (09:22→21:10)
[2017-03-21] MEDS: PENICILLIN V K 250 MG TAB PO SCH ×2 (09:22→23:34)
[2017-03-21] MEDS: PREGABALIN 25 MG CAP PO SCH ×2 (09:23→21:10)
[2017-03-21] MEDS: HYDROCODONE/APAP (5/325) TAB PO PRN ×3 (10:25→21:10)
[2017-03-21] MEDS ORDERED: SOD CHLORIDE 0.9% 1,000 ML IV SCH (11:30)
--- NOTE | 2017-03-21 13:26 | PN ---
Date/Time of Note Date/Time of Note DATE: 03/21/17 TIME: 13:24 Assessment/Plan Lines/Catheters IV Catheter Type (from Nrsg): Peripheral IV Giraldo in Place (from Nrsg): No (discontinued) Assessment/Plan Assessment/Plan POD # 2. Stable. -Continue drain -Vanco and PCN as per ID -OOB with PT -TDWB left LE -Hip precautions -Coumadin -SCDs Subjective 24 Hr Interval Summary Had some pain last night. Relieved with [place]. Was OOB with PT this morning. On Vanco and PCN. Exam/Review of Systems Vital Signs Vitals Vital Signs Date Time Temp Pulse Resp B/P Pulse Ox O2 Delivery O2 Flow Rate FiO2 03/21/17 10:00 79 17 134/73 97 Room Air 03/21/17 07:00 98.5 03/20/17 11:00 2.0 Intake and Output 03/20/17 03/20/17 03/21/17 15:00 23:00 07:00 Intake Total 375 ml 615 ml 1085 ml Output Total 925 ml 1200 ml 2500 ml Balance -550 ml -585 ml -1415 ml Exam Free Text/Dictation Hemovac: 100 cc Dressing dry and changed Incision clean, dry, and intact without redness or drainage Thigh soft 5/5 Quadriceps, Tibialis Anterior, EHL, Gastroc Soleus, Peroneals Normal sensation Palpable DP/PT, CR < 2 Sec No distal edema Cultures: Negative to date INR: 1.31 Results Result Diagram: 03/21/1744403/21/17444 GONZALO MCCRACKEN MD Mar 21, 2017 13:26
[2017-03-21] MEDS ORDERED: WARFARIN 3 MG TAB PO ONE (17:00)
--- NOTE | 2017-03-21 20:42 | CONS ---
Date/Time of Note Date/Time of Note DATE: 03/21/17 TIME: 16:27 Assessment/Plan Assessment/Plan Additional Assessment/Plan # s/p left hip re-implantation due to infection of prior hip prosthesis - anitbiotics per ID. Physical therapy # Anemia. Hb now stable post transfusion, continue to monitor # Tansient hypotension - resolved. Will stop IV fluids Consultation Date/Type/Reason Admit Date/Time Mar 19, 2017 at 09:07 Initial Consult Date 03/20/17 Type of Consultation: IM 24 HR Interval Summary Free Text/Dictation The patient was transferred to the medical floor. He is alert and reports pain when he moves the leg. Tolerating food and fluids. Exam/Review of Systems Vital Signs Vitals Vital Signs Date Time Temp Pulse Resp B/P Pulse Ox O2 Delivery O2 Flow Rate FiO2 03/21/17 10:00 79 17 134/73 97 Room Air 03/21/17 07:00 98.5 03/20/17 11:00 2.0 Intake and Output 03/20/17 03/20/17 03/21/17 15:00 23:00 07:00 Intake Total 375 ml 615 ml 1085 ml Output Total 925 ml 1200 ml 2500 ml Balance -550 ml -585 ml -1415 ml Exam Constitutional: alert Neck: supple Respiratory: clear to auscultation Cardiovascular: regular rate and rhythm Gastrointestinal: non-tender, soft Extremities: No edema Results Result Diagram: 03/21/17 0445 03/21/17 0445 Results 24 hrs Laboratory Tests Test 03/21/17 04:45 03/21/17 05:20 White Blood Count 12.1 #H Red Blood Count 2.86 L Hemoglobin 9.0 L Hematocrit 27.0 L Mean Corpuscular Volume 94.4 Mean Corpuscular Hemoglobin 31.5 Mean Corpuscular Hemoglobin Concent 33.3 Red Cell Distribution Width 13.7 Platelet Count 128 L Mean Platelet Volume 12.2 #H Neutrophils % 80.5 H Lymphocytes % 5.5 L Monocytes % 13.0 H Eosinophils % 0.3 Basophils % 0.1 Nucleated Red Blood Cells % 0.0 Neutrophils # 9.7 H Lymphocytes # 0.7 L Monocytes # 1.6 H Eosinophils # 0.0 Basophils # 0.0 Nucleated Red Blood Cells # 0.0 Prothrombin Time 16.4 H Prothrombin Time Ratio 1.3 INR International Normalized Ratio 1.31 Sodium Level 139 Potassium Level 4.3 Chloride Level 110 Carbon Dioxide Level 22 Anion Gap 11 Blood Urea Nitrogen 16 Creatinine 1.08 Glucose Level 119 # Calcium Level 9.4 Lab Scanned Report BLOOD TRANSFUSION Medications Medications Current Medications Miscellaneous Information 1 ea NOTE XX ; Start 03/19/17 at 07:00; Stop 03/23/17 at 06:59 Penicillin V Potassium (Penicillin V K) 500 mg BID PO Last administered on 03/21 09:22; Admin Dose 500 MG; Start 03/19/17 at 21:00 Tramadol HCl (Ultram) 50 mg Q6 PO Last administered on 03/21/17 12:54; Admin Dose 50 MG; Start 03/19/17 at 12:00; Stop 03/22/17 at 11:59 Acetaminophen/ Hydrocodone Bitart ([place] (5/325)) 1 tab Q4H PRN PO PAIN LEVEL 1 -3 Last administered on 03/21/17 15:43; Admin Dose 1 TAB; Start 03/19/17 at 19: 00 Acetaminophen/ Hydrocodone Bitart ([place] (5/325)) 2 tab Q4H PRN PO PAIN LEVEL 4 -7; Start 03/19/17 at 19:00 Hydromorphone HCl (Dilaudid) 1 mg Q3H PRN IV PAIN LEVEL 8-10; Start 03/19/17 at 19:00 Ondansetron HCl (Zofran Inj) 4 mg Q6H PRN IV NAUSEA AND/OR VOMITING; Start at 19:00 Bisacodyl (Dulcolax Supp) 10 mg Q12H PRN [place] CONSTIPATION; Start 03/19/17 at 19: 00 Magnesium Hydroxide (Milk Of Mag) 30 ml BID PRN PO CONSTIPATION; Start at 19:00 Sodium Biphosphate/ Sodium Phosphate (Fleet Enema) 133 ml DAILY PRN [place] CONSTIPATION; Start 03/19/17 at 19:00 Docusate Sodium (Colace) 100 mg BID PO Last administered on 03/21/17 09:22; Admin Dose 100 MG; Start 03/19/17 at 21:00 Diphenhydramine HCl (Benadryl) 25 mg Q6H PRN PO PRURITUS; Start 03/19/17 at 19: 00 Pantoprazole (Protonix Tab) 40 mg BID@06,18 PO Last administered on 03/21/17 05:49; Admin Dose 40 MG; Start 03/20/17 at 06:00 Pregabalin 50 mg 50 mg BID PO Last administered on 03/21/17 09:23; Admin Dose 50 MG; Start 03/20/17 at 10:00 Sodium Chloride (NS) 1,000 ml @ 50 mls/hr Q20H IV ; Start 03/21/17 at 11:30 Warfarin Sodium (Coumadin) 3 mg ONCE@17 ONCE PO ; Start 03/21/17 at 17:00; Stop 03/21/17 at 17:01 TEO BARAJAS MD Mar 21, 2017 16:32
[2017-03-22] MEDS: HYDROCODONE/APAP (5/325) TAB PO PRN (05:48)
[2017-03-22] MEDS: traMADol 50 MG TAB PO SCH (05:52)
[2017-03-22] MEDS: PANTOPRAZOLE (EC) 40 MG TAB PO SCH ×2 (05:52→18:16)
[2017-03-22 06:52] LABS: HEMOGLOBIN 8.5 g/dl (14.0-18.0)
[2017-03-22 06:56] LABS: CALCIUM 9.4 mg/dl (8.4-10.2); CREATININE 1.19 mg/dl (0.61-1.24); POTASSIUM 4.2 mmol/L (3.5-5.1)
--- NOTE | 2017-03-22 06:59 | CONS ---
Date/Time of Note Date/Time of Note DATE: 03/22/17 TIME: 06:53 Assessment/Plan Assessment/Plan Chief Complaint/Hosp Course 1) L hip re-implantion continue with IV vanco, till cx are neg pt to be maintained on oral pcn for several years L hip cx are NGTD 03/21 - cx remain NGTD continue with vanco for another day 03/22 - pt got last dose of vanco on 03/20 I asked nurse yesterday afternoon to continue with vanco wound cx from time of surgery are negative will re-start vanco and send cx from drainage 2) anemia, s/p surgery pt getting hgb checked again in a few hours 03/21 - Hgb is stable and pulse and B/P are good 3) low grade fever no urinary or pulmonary symptoms re-start vanco and get cx from drainage tubes in L hip check cbc Problems: Consultation Date/Type/Reason Admit Date/Time Mar 19, 2017 at 09:07 Initial Consult Date 03/20/17 Type of Consultation: ID 24 HR Interval Summary Free Text/Dictation pt has low grade temp but no chills nor could he tell that he had a fever no N, V, D no dysuria, SOB participated in PT yesterday, pain to L hip with PT Exam/Review of Systems Vital Signs Vitals Vital Signs Date Time Temp Pulse Resp B/P Pulse Ox O2 Delivery O2 Flow Rate FiO2 03/22/17 00:00 99.2 03/21/17 20:28 85 18 128/65 95 03/21/17 10:00 Room Air 03/20/17 11:00 2.0 Intake and Output 03/21/17 03/21/17 03/22/17 15:00 23:00 07:00 Intake Total 950 ml 2340 ml Output Total 900 ml 1200 ml Balance 50 ml 1140 ml Exam Constitutional: alert, oriented Eyes: nl sclera ENMT: mucosa pink and moist Respiratory: clear to auscultation Cardiovascular: regular rate and rhythm Gastrointestinal: non-tender, soft Extremities: other (L hip has drains present, very warm to touch, no redness) Results Result Diagram: 03/21/17 0445 03/21/17 044 Medications Medications Current Medications Miscellaneous Information 1 ea NOTE XX ; Start 03/19/17 at 07:00; Stop 03/23/17 at 06:59 Penicillin V Potassium (Penicillin V K) 500 mg BID PO Last administered on 03/21 23:34; Admin Dose 500 MG; Start 03/19/17 at 21:00 Tramadol HCl (Ultram) 50 mg Q6 PO Last administered on 03/22/17 05:52; Admin Dose 50 MG; Start 03/19/17 at 12:00; Stop 03/22/17 at 11:59 Acetaminophen/ Hydrocodone Bitart ([place] (5/325)) 1 tab Q4H PRN PO PAIN LEVEL 1 -3 Last administered on 03/22/17 05:48; Admin Dose 1 TAB; Start 03/19/17 at 19: 00 Acetaminophen/ Hydrocodone Bitart ([place] (5/325)) 2 tab Q4H PRN PO PAIN LEVEL 4 -7; Start 03/19/17 at 19:00 Hydromorphone HCl (Dilaudid) 1 mg Q3H PRN IV PAIN LEVEL 8-10; Start 03/19/17 at 19:00 Ondansetron HCl (Zofran Inj) 4 mg Q6H PRN IV NAUSEA AND/OR VOMITING; Start at 19:00 Bisacodyl (Dulcolax Supp) 10 mg Q12H PRN [place] CONSTIPATION; Start 03/19/17 at 19: 00 Magnesium Hydroxide (Milk Of Mag) 30 ml BID PRN PO CONSTIPATION; Start at 19:00 Sodium Biphosphate/ Sodium Phosphate (Fleet Enema) 133 ml DAILY PRN [place] CONSTIPATION; Start 03/19/17 at 19:00 Docusate Sodium (Colace) 100 mg BID PO Last administered on 03/21/17 21:10; Admin Dose 100 MG; Start 03/19/17 at 21:00 Diphenhydramine HCl (Benadryl) 25 mg Q6H PRN PO PRURITUS; Start 03/19/17 at 19: 00 Pantoprazole (Protonix Tab) 40 mg BID@18 PO Last administered on 03/22/17 05:52; Admin Dose 40 MG; Start 03/20/17 at 06:00 Pregabalin (Lyrica) 50 mg BID PO Last administered on 03/21/17 21:10; Admin Dose 50 MG; Start 03/20/17 at 10:00 ALISHA SANDOVAL MD Mar 22, 2017 06:59
[2017-03-22] MEDS ORDERED: VANCOMYCIN IV PER PHARMACY XX SCH (07:00)
[2017-03-22 07:01] LABS: INR 1.25; PROTIME 15.8 Sec (12.2-14.2); PT RATIO 1.2
[2017-03-22 07:08] LABS: ADD SCAN DIFF NO
[2017-03-22 07:09] LABS: ABNORMAL IP MESSAGE 1; BASOPHILS % 0.2 % (0.0-2.0); EOSINOPHILS # 0.2 10^3/ul (0.0-0.5); EOSINOPHILS % 1.8 % (0.0-7.0); HEMATOCRIT 25.1 % (42.0-52.0); HEMOGLOBIN 8.6 g/dl (14.0-18.0); LYMPHOCYTES # 1.1 10^3/ul (0.8-2.9); LYMPHOCYTES % 8.5 % (15.0-51.0); MEAN CORPUSCULAR HEMOGLOBIN 31.4 pg (29.0-33.0); MEAN CORPUSCULAR HGB CONC 34.3 g/dl (32.0-37.0); MEAN CORPUSCULAR VOLUME 91.6 fl (82.0-101.0); MEAN PLATELET VOLUME 11.9 fl (7.4-10.4); MONOCYTE # 1.7 10^3/ul (0.3-0.9); MONOCYTES % 12.8 % (0.0-11.0); NEUTROPHILS % 75.9 % (39.0-77.0); PLATELET COUNT 170 10^3/UL (140-415); RED BLOOD COUNT 2.74 10^6/ul (4.70-6.10); RED CELL DISTRIBUTION WIDTH 13.2 % (11.5-14.5); WHITE BLOOD COUNT 13.2 10^3/ul (4.8-10.8)
[2017-03-22 08:40] VITALS: BP 133/78; RESP 17
[2017-03-22] MEDS ORDERED: VANCOMYCIN 2 GM in SOD CHLORIDE 0.9% 500 ML IVPB SCH (09:00)
[2017-03-22] MEDS: PENICILLIN V K 250 MG TAB PO SCH ×2 (09:40→20:46)
[2017-03-22] MEDS: DOCUSATE SODIUM 100 MG CAP PO SCH ×2 (09:41→20:45)
[2017-03-22] MEDS: PREGABALIN 25 MG CAP PO SCH ×2 (09:41→20:46)
--- NOTE | 2017-03-22 10:59 | CONS ---
Date/Time of Note Date/Time of Note DATE: 03/22/17 TIME: 10:58 Assessment/Plan Assessment/Plan Additional Assessment/Plan # s/p left hip re-implantation due to infection of prior hip prosthesis - anitbiotics per ID. Physical therapy # Anemia. Hb now stable post transfusion, continue to monitor # Tansient hypotension - resolved. Consultation Date/Type/Reason Admit Date/Time Mar 19, 2017 at 09:07 Initial Consult Date 03/20/17 Type of Consultation: ID 24 HR Interval Summary Free Text/Dictation Alert, not much pain, no dizziness Exam/Review of Systems Vital Signs Vitals Vital Signs Date Time Temp Pulse Resp B/P Pulse Ox O2 Delivery O2 Flow Rate FiO2 03/22/17 08:40 99.1 81 17 133/78 100 03/21/17 10:00 Room Air 03/20/17 11:00 2.0 Intake and Output 03/21/17 03/21/17 03/22/17 15:00 23:00 07:00 Intake Total 950 ml 2340 ml 250 ml Output Total 900 ml 1200 ml 600 ml Balance 50 ml 1140 ml -350 ml Exam Constitutional: alert Neck: No jvd Respiratory: clear to auscultation Cardiovascular: regular rate and rhythm Extremities: No edema Results Result Diagram: 03/22/17 0455 03/22/17 0455 Results 24 hrs Laboratory Tests Test 03/22/17 04:55 White Blood Count 13.2 H Red Blood Count 2.74 L Hemoglobin 8.6 L Hematocrit 25.1 L Mean Corpuscular Volume 91.6 Mean Corpuscular Hemoglobin 31.4 Mean Corpuscular Hemoglobin Concent 34.3 Red Cell Distribution Width 13.2 Platelet Count 170 # Mean Platelet Volume 11.9 H Neutrophils % 75.9 Lymphocytes % 8.5 L Monocytes % 12.8 H Eosinophils % 1.8 Basophils % 0.2 Nucleated Red Blood Cells % 0.0 Neutrophils # 10.0 H Lymphocytes # 1.1 Monocytes # 1.7 H Eosinophils # 0.2 Basophils # 0.0 Nucleated Red Blood Cells # 0.0 Erythrocyte Sedimentation Rate 37 H Prothrombin Time 15.8 H Prothrombin Time Ratio 1.2 INR International Normalized Ratio 1.25 Sodium Level 134 L Potassium Level 4.2 Chloride Level 100 # Carbon Dioxide Level 30 Anion Gap 8 Blood Urea Nitrogen 13 Creatinine 1.19 Glucose Level 126 Calcium Level 9.4 Medications Medications Current Medications Miscellaneous Information 1 ea NOTE XX ; Start 03/19/17 at 07:00; Stop 03/23/17 at 06:59 Penicillin V Potassium (Penicillin V K) 500 mg BID PO Last administered on 03/22 09:40; Admin Dose 500 MG; Start 03/19/17 at 21:00 Tramadol HCl (Ultram) 50 mg Q6 PO Last administered on 03/22/17 05:52; Admin Dose 50 MG; Start 03/19/17 at 12:00; Stop 03/22/17 at 11:59 Acetaminophen/ Hydrocodone Bitart ([place] (5/325)) 1 tab Q4H PRN PO PAIN LEVEL 1 -3 Last administered on 03/22/17 05:48; Admin Dose 1 TAB; Start 03/19/17 at 19: 00 Acetaminophen/ Hydrocodone Bitart ([place] (5/325)) 2 tab Q4H PRN PO PAIN LEVEL 4 -7; Start 03/19/17 at 19:00 Hydromorphone HCl (Dilaudid) 1 mg Q3H PRN IV PAIN LEVEL 8-10; Start 03/19/17 at 19:00 Ondansetron HCl (Zofran Inj) 4 mg Q6H PRN IV NAUSEA AND/OR VOMITING; Start at 19:00 Bisacodyl (Dulcolax Supp) 10 mg Q12H PRN [place] CONSTIPATION; Start 03/19/17 at 19: 00 Magnesium Hydroxide (Milk Of Mag) 30 ml BID PRN PO CONSTIPATION; Start at 19:00 Sodium Biphosphate/ Sodium Phosphate (Fleet Enema) 133 ml DAILY PRN [place] CONSTIPATION; Start 03/19/17 at 19:00 Docusate Sodium (Colace) 100 mg BID PO Last administered on 03/22/17 09:41; Admin Dose 100 MG; Start 03/19/17 at 21:00 Diphenhydramine HCl (Benadryl) 25 mg Q6H PRN PO PRURITUS; Start 03/19/17 at 19: 00 Pantoprazole (Protonix Tab) 40 mg BID@18 PO Last administered on 03/22/17 05:52; Admin Dose 40 MG; Start 03/20/17 at 06:00 Pregabalin 50 mg 50 mg BID PO Last administered on 03/22/17 09:41; Admin Dose 50 MG; Start 03/20/17 at 10:00 Vancomycin HCl 2 gm/Sodium Chloride 500 ml @ 125 mls/hr 09 IVPB Last administered on 03/22/17 09:41; Admin Dose 125 MLS/HR; Start 03/22/17 at 09:00 ; Stop 03/22/17 at 16:00 Vancomycin HCl/ Sodium Chloride (Vancocin/NS) 250 ml @ 83.333 mls/ hr Q12H IVPB ; Start 03/22/17 at 21:00 TEO BARAJAS MD Mar 22, 2017 10:59
--- NOTE | 2017-03-22 13:00 | PN ---
Date/Time of Note Date/Time of Note DATE: 03/22/17 TIME: 12:58 Assessment/Plan Lines/Catheters IV Catheter Type (from Nrsg): Saline Lock Giraldo in Place (from Nrsg): No (discontinued) Assessment/Plan Assessment/Plan POD # 3. Stable. -Encourage IS 10 x per hour -OOB with PT -Continue drain -If drain output minimal tomorrow, will remove drains -Drain output cultured by Dr. Fletcher because of low grade temp -Continue Vanco and PCN -Hip precuations -TDWB left LE -Coumadin/SCDs Subjective 24 Hr Interval Summary Resting comfortably. Had low grade temp last night. Walked with PT today. Exam/Review of Systems Vital Signs Vitals Vital Signs Date Time Temp Pulse Resp B/P Pulse Ox O2 Delivery O2 Flow Rate FiO2 03/22/17 08:40 99.1 81 17 133/78 100 03/21/17 10:00 Room Air 03/20/17 11:00 2.0 Intake and Output 03/21/17 03/21/17 03/22/17 15:00 23:00 07:00 Intake Total 950 ml 2340 ml 250 ml Output Total 900 ml 1200 ml 600 ml Balance 50 ml 1140 ml -350 ml Exam Free Text/Dictation Hemovac: 50 cc Dressing dry Thigh soft 5/5 Quadriceps, Tibialis Anterior, EHL, Gastroc Soleus, Peroneals Normal sensation Palpable DP/PT, CR < 2 Sec No distal edema Cultures: Negative to date Results Result Diagram: 03/22/17 0455 03/22/17 0455 GONZALO MCCRACKEN MD Mar 22, 2017 13:00
[2017-03-22] MEDS ORDERED: WARFARIN 2 MG TAB PO ONE (17:00)
[2017-03-22 19:46] VITALS: BP 121/66; RESP 20
[2017-03-22] MEDS: VANCOMYCIN 1.25 GM in SOD CHLORIDE 0.9% 250 ML IVPB SCH (20:45)
[2017-03-23] MEDS: PANTOPRAZOLE (EC) 40 MG TAB PO SCH ×2 (05:56→18:21)
[2017-03-23 06:01] LABS: ADD SCAN DIFF NO
[2017-03-23 06:10] LABS: ABNORMAL IP MESSAGE 1; BASOPHILS % 0.2 % (0.0-2.0); EOSINOPHILS # 0.4 10^3/ul (0.0-0.5); EOSINOPHILS % 2.9 % (0.0-7.0); HEMATOCRIT 25.5 % (42.0-52.0); HEMOGLOBIN 8.5 g/dl (14.0-18.0); LYMPHOCYTES # 0.9 10^3/ul (0.8-2.9); LYMPHOCYTES % 7.5 % (15.0-51.0); MEAN CORPUSCULAR HEMOGLOBIN 30.8 pg (29.0-33.0); MEAN CORPUSCULAR HGB CONC 33.3 g/dl (32.0-37.0); MEAN CORPUSCULAR VOLUME 92.4 fl (82.0-101.0); MONOCYTE # 1.5 10^3/ul (0.3-0.9); MONOCYTES % 12.5 % (0.0-11.0); NEUTROPHIL # 9.2 10^3/ul (1.6-7.5); NEUTROPHILS % 74.9 % (39.0-77.0); PLATELET COUNT 164 10^3/UL (140-415); RED BLOOD COUNT 2.76 10^6/ul (4.70-6.10); RED CELL DISTRIBUTION WIDTH 13.1 % (11.5-14.5); WHITE BLOOD COUNT 12.2 10^3/ul (4.8-10.8)
[2017-03-23 06:42] LABS: CALCIUM 9.8 mg/dl (8.4-10.2); CREATININE 1.04 mg/dl (0.61-1.24); POTASSIUM 4.3 mmol/L (3.5-5.1)
[2017-03-23 06:43] LABS: INR 1.34; PROTIME 16.7 Sec (12.2-14.2); PT RATIO 1.3
--- NOTE | 2017-03-23 07:51 | CONS ---
Date/Time of Note Date/Time of Note DATE: 03/23/17 TIME: 07:47 Assessment/Plan Assessment/Plan Chief Complaint/Hosp Course 1) L hip re-implantion continue with IV vanco, till cx are neg pt to be maintained on oral pcn for several years L hip cx are NGTD 03/21 - cx remain NGTD continue with vanco for another day 03/22 - pt got last dose of vanco on 03/20 I asked nurse yesterday afternoon to continue with vanco wound cx from time of surgery are negative will re-start vanco and send cx from drainage 03/23 - wound cx is NGTD fevers improved but not resolved if cx remain neg thru tomorrow will d/c vanco 2) anemia, s/p surgery pt getting hgb checked again in a few hours 03/21 - Hgb is stable and pulse and B/P are good 3) low grade fever no urinary or pulmonary symptoms re-start vanco and get cx from drainage tubes in L hip check cbc 03/23 - CBC is improved and fever is also improved wound cx is NGTD continue vanco, if fever resolved and cx remain NGTD will d/c vanco tomorrow Problems: Consultation Date/Type/Reason Admit Date/Time Mar 19, 2017 at 09:07 Initial Consult Date 03/20/17 Type of Consultation: ID 24 HR Interval Summary Free Text/Dictation pt is progressing no BM, SOB, N, V he states everyday with PT his legs hurts a bit less and walks a bit farther Exam/Review of Systems Vital Signs Vitals Vital Signs Date Time Temp Pulse Resp B/P Pulse Ox O2 Delivery O2 Flow Rate FiO2 03/22/17 19:46 99.7 87 20 121/66 93 03/21/17 10:00 Room Air 03/20/17 11:00 2.0 Intake and Output 03/22/17 03/22/17 03/23/17 15:00 23:00 07:00 Intake Total 500 ml 800 ml 850 ml Output Total 1100 ml 1400 ml Balance 500 ml -300 ml -550 ml Exam Constitutional: alert, oriented Eyes: nl conjunctiva ENMT: mucosa pink and moist Respiratory: clear to auscultation Cardiovascular: regular rate and rhythm Gastrointestinal: non-tender, soft Extremities: other (L hip has drain present and vac pump but no redness and less heat to the thigh) Results Result Diagram: 03/23/17 0445 03/23/17 0445 Results 24 hrs Laboratory Tests Test 03/23/17 04:45 White Blood Count 12.2 H Red Blood Count 2.76 L Hemoglobin 8.5 L Hematocrit 25.5 L Mean Corpuscular Volume 92.4 Mean Corpuscular Hemoglobin 30.8 Mean Corpuscular Hemoglobin Concent 33.3 Red Cell Distribution Width 13.1 Platelet Count 164 Mean Platelet Volume 12.0 H Neutrophils % 74.9 Lymphocytes % 7.5 L Monocytes % 12.5 H Eosinophils % 2.9 Basophils % 0.2 Nucleated Red Blood Cells % 0.0 Neutrophils # 9.2 H Lymphocytes # 0.9 Monocytes # 1.5 H Eosinophils # 0.4 Basophils # 0.0 Nucleated Red Blood Cells # 0.0 Prothrombin Time 16.7 H Prothrombin Time Ratio 1.3 INR International Normalized Ratio 1.34 Sodium Level 137 Potassium Level 4.3 Chloride Level 104 Carbon Dioxide Level 26 Anion Gap 11 Blood Urea Nitrogen 13 Creatinine 1.04 Glucose Level 142 Calcium Level 9.8 Medications Medications Current Medications Penicillin V Potassium (Penicillin V K) 500 mg BID PO Last administered on 03/22 20:46; Admin Dose 500 MG; Start 03/19/17 at 21:00 Acetaminophen/ Hydrocodone Bitart ([place] (5/325)) 1 tab Q4H PRN PO PAIN LEVEL 1 -3 Last administered on 03/22/17 05:48; Admin Dose 1 TAB; Start 03/19/17 at 19: 00 Acetaminophen/ Hydrocodone Bitart ([place] (5/325)) 2 tab Q4H PRN PO PAIN LEVEL 4 -7; Start 03/19/17 at 19:00 Hydromorphone HCl (Dilaudid) 1 mg Q3H PRN IV PAIN LEVEL 8-10; Start 03/19/17 at 19:00 Ondansetron HCl (Zofran Inj) 4 mg Q6H PRN IV NAUSEA AND/OR VOMITING; Start at 19:00 Bisacodyl (Dulcolax Supp) 10 mg Q12H PRN [place] CONSTIPATION; Start 03/19/17 at 19: 00 Magnesium Hydroxide (Milk Of Mag) 30 ml BID PRN PO CONSTIPATION; Start at 19:00 Sodium Biphosphate/ Sodium Phosphate (Fleet Enema) 133 ml DAILY PRN [place] CONSTIPATION; Start 03/19/17 at 19:00 Docusate Sodium (Colace) 100 mg BID PO Last administered on 03/22/17 20:45; Admin Dose 100 MG; Start 03/19/17 at 21:00 Diphenhydramine HCl (Benadryl) 25 mg Q6H PRN PO PRURITUS; Start 03/19/17 at 19: 00 Pantoprazole (Protonix Tab) 40 mg BID@06,18 PO Last administered on 03/23/17 05:56; Admin Dose 40 MG; Start 03/20/17 at 06:00 Pregabalin 50 mg 50 mg BID PO Last administered on 03/22/17 20:46; Admin Dose 50 MG; Start 03/20/17 at 10:00 Vancomycin HCl/ Sodium Chloride (Vancocin/NS) 250 ml @ 83.333 mls/ hr Q12H IVPB Last administered on 03/22/17 20:45; Admin Dose 83.333 MLS/HR; Start at 21:00 ALISHA SANDOVAL MD Mar 23, 2017 07:51
[2017-03-23 08:39] VITALS: BP 120/68; RESP 18
--- NOTE | 2017-03-23 08:50 | PN ---
Date/Time of Note Date/Time of Note DATE: 03/23/17 TIME: 08:48 Assessment/Plan Lines/Catheters IV Catheter Type (from Nrsg): Saline Lock Giraldo in Place (from Nrsg): No (discontinued) Assessment/Plan Assessment/Plan Stable, POD #4 -continue abx per ID -pain meds as needed -Coumadin 5mg today/SCDs -OOB with PT - TDWB -drain removed -check AM labs -dressing changed -encouraged IC -venous doppler r/o DVT -discharge planning Subjective 24 Hr Interval Summary No acute overnight events. Had low grade fever but cultures are all negative. Denies chills. Progressing with PT. VSS. Exam/Review of Systems Vital Signs Vitals Vital Signs Date Time Temp Pulse Resp B/P Pulse Ox O2 Delivery O2 Flow Rate FiO2 03/23/17 08:39 100.0 85 18 120/68 90 03/21/17 10:00 Room Air 03/20/17 11:00 2.0 Intake and Output 03/22/17 03/22/17 03/23/17 15:00 23:00 07:00 Intake Total 500 ml 800 ml 850 ml Output Total 1100 ml 1400 ml Balance 500 ml -300 ml -550 ml Exam Free Text/Dictation Hemovac: 0cc Dressing dry Incision clean, dry, and intact without redness or drainage 5/5 Quadriceps, Tibialis Anterior, EHL, Gastroc, Soleus, Peroneals Normal sensation Palpable DT/PT, CR <2 sec No distal edema Results Result Diagram: 03/23/17 0445 03/23/17 0445 ANIA ARCOS PA-C Mar 23, 2017 08:50
--- NOTE | 2017-03-23 09:46 | RADRPT ---
PROCEDURE: US Lower extremity Venous. CLINICAL INDICATION: Pain and swelling TECHNIQUE: Multiple sonographic images of the left lower extremity deep venous system was obtained utilizing grayscale, color-flow, compressive sonography and doppler imaging with augmentation. The images were reviewed on a PACS workstation. COMPARISON: None. FINDINGS: There is normal compressibility and flow within the left common femoral, deep femoral, superficial f emoral and popliteal veins. Normal respiratory variation and augmentation is seen. There is normal color flow and compressibility of left posterior tibial and peroneal veins IMPRESSION: No sonographic evidence for left lower extremity deep venous thrombosis. RPTAT: HH .Nimesh Blandon MD, MD Date Time Electronically viewed and signed by .Nimesh Blandon MD, on 03/23/2017 09:46 .W/
[2017-03-23] MEDS: DOCUSATE SODIUM 100 MG CAP PO SCH ×2 (09:49→20:55)
[2017-03-23] MEDS: VANCOMYCIN 1.25 GM in SOD CHLORIDE 0.9% 250 ML IVPB SCH ×2 (09:49→22:04)
[2017-03-23] MEDS: PREGABALIN 25 MG CAP PO SCH ×2 (09:49→20:54)
[2017-03-23] MEDS: PENICILLIN V K 250 MG TAB PO SCH ×2 (09:50→20:55)
[2017-03-23] MEDS: HYDROCODONE/APAP (5/325) TAB PO PRN (09:55)
--- NOTE | 2017-03-23 10:16 | CONS ---
Date/Time of Note Date/Time of Note DATE: 03/23/17 TIME: 10:11 Assessment/Plan Assessment/Plan Chief Complaint/Hosp Course 1. He is now 4 days postop a left total hip arthroplasty. 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 He is on vancomycin. 2. Anemia, his H&H is stable. I will check iron levels today. 3. His vital signs are good and his blood pressure is controlled off medicine at this time. 4. Continue physical therapy as tolerated. 5. He is on Coumadin for DVT prophylaxis Problems: Consultation Date/Type/Reason Admit Date/Time Mar 19, 2017 at 09:07 Initial Consult Date 03/20/17 Type of Consultation: ID 24 HR Interval Summary Free Text/Dictation He is now 4 days postop a left total hip replacement. He feels well. He has been up with physical therapy. He thinks that he needs more physical therapy before going home. Constitutional: improved, no complaints Exam/Review of Systems Vital Signs Vitals Vital Signs Date Time Temp Pulse Resp B/P Pulse Ox O2 Delivery O2 Flow Rate FiO2 03/23/17 08:39 100.0 85 18 120/68 90 03/21/17 10:00 Room Air 03/20/17 11:00 2.0 Intake and Output 03/22/17 03/22/17 03/23/17 15:00 23:00 07:00 Intake Total 500 ml 800 ml 850 ml Output Total 1100 ml 1400 ml Balance 500 ml -300 ml -550 ml Exam Constitutional: alert, oriented, well developed Respiratory: clear to auscultation, normal air movement Cardiovascular: regular rate and rhythm Gastrointestinal: non-tender, soft Musculoskeletal: nl extremities to inspection Results Result Diagram: 03/23/17 0445 03/23/17 0445 Results 24 hrs Laboratory Tests Test 03/23/17 04:45 White Blood Count 12.2 H Red Blood Count 2.76 L Hemoglobin 8.5 L Hematocrit 25.5 L Mean Corpuscular Volume 92.4 Mean Corpuscular Hemoglobin 30.8 Mean Corpuscular Hemoglobin Concent 33.3 Red Cell Distribution Width 13.1 Platelet Count 164 Mean Platelet Volume 12.0 H Neutrophils % 74.9 Lymphocytes % 7.5 L Monocytes % 12.5 H Eosinophils % 2.9 Basophils % 0.2 Nucleated Red Blood Cells % 0.0 Neutrophils # 9.2 H Lymphocytes # 0.9 Monocytes # 1.5 H Eosinophils # 0.4 Basophils # 0.0 Nucleated Red Blood Cells # 0.0 Prothrombin Time 16.7 H Prothrombin Time Ratio 1.3 INR International Normalized Ratio 1.34 Sodium Level 137 Potassium Level 4.3 Chloride Level 104 Carbon Dioxide Level 26 Anion Gap 11 Blood Urea Nitrogen 13 Creatinine 1.04 Glucose Level 142 Calcium Level 9.8 Medications Medications Current Medications Penicillin V Potassium (Penicillin V K) 500 mg BID PO Last administered on 03/23 09:50; Admin Dose 500 MG; Start 03/19/17 at 21:00 Acetaminophen/ Hydrocodone Bitart ([place] (5/325)) 1 tab Q4H PRN PO PAIN LEVEL 1 -3 Last administered on 03/23/17 09:55; Admin Dose 1 TAB; Start 03/19/17 at 19: 00 Acetaminophen/ Hydrocodone Bitart ([place] (5/325)) 2 tab Q4H PRN PO PAIN LEVEL 4 -7; Start 03/19/17 at 19:00 Hydromorphone HCl (Dilaudid) 1 mg Q3H PRN IV PAIN LEVEL 8-10; Start 03/19/17 at 19:00 Ondansetron HCl (Zofran Inj) 4 mg Q6H PRN IV NAUSEA AND/OR VOMITING; Start at 19:00 Bisacodyl (Dulcolax Supp) 10 mg Q12H PRN [place] CONSTIPATION; Start 03/19/17 at 19: 00 Magnesium Hydroxide (Milk Of Mag) 30 ml BID PRN PO CONSTIPATION; Start at 19:00 Sodium Biphosphate/ Sodium Phosphate (Fleet Enema) 133 ml DAILY PRN [place] CONSTIPATION; Start 03/19/17 at 19:00 Docusate Sodium (Colace) 100 mg BID PO Last administered on 03/23/17 09:49; Admin Dose 100 MG; Start 03/19/17 at 21:00 Diphenhydramine HCl (Benadryl) 25 mg Q6H PRN PO PRURITUS; Start 03/19/17 at 19: 00 Pantoprazole (Protonix Tab) 40 mg BID@,18 PO Last administered on 03/23/17 05:56; Admin Dose 40 MG; Start 03/20/17 at 06:00 Pregabalin 50 mg 50 mg BID PO Last administered on 03/23/17 09:49; Admin Dose 50 MG; Start 03/20/17 at 10:00 Vancomycin HCl/ Sodium Chloride (Vancocin/NS) 250 ml @ 83.333 mls/ hr Q12H IVPB Last administered on 03/23/17 09:49; Admin Dose 83.333 MLS/HR; Start at 21:00 Warfarin Sodium (Coumadin) 5 mg ONCE@17 ONCE PO ; Start 03/23/17 at 17:00; Stop 03/23/17 at 17:01 Miscellaneous Information (*Rx Drug Level Order Reminder*) VANCOMYCIN TROUGH AT 1999 ONCE ONCE XX ; Start 03/23/17 at 20:00; Stop 03/23/17 at 20:01 JORGE CLAY MD Mar 23, 2017 10:16
[2017-03-23 15:26] LABS: IRON 11 ug/dl (35-150)
[2017-03-23 15:37] LABS: TOTAL IRON BINDING CAPACITY 208 ug/dl (241-421)
[2017-03-23] MEDS ORDERED: WARFARIN 5 MG TAB PO ONE (17:00)
[2017-03-23 19:19] VITALS: BP 152/69; RESP 18
[2017-03-23] MEDS: ACETAMINOPHEN 325 MG TAB PO PRN (20:54)
[2017-03-24 06:04] LABS: ADD SCAN DIFF NO; BASOPHILS % 0.4 % (0.0-2.0); EOSINOPHILS # 0.5 10^3/ul (0.0-0.5); EOSINOPHILS % 4.8 % (0.0-7.0); HEMATOCRIT 24.8 % (42.0-52.0); HEMOGLOBIN 8.2 g/dl (14.0-18.0); LYMPHOCYTES # 0.9 10^3/ul (0.8-2.9); LYMPHOCYTES % 8.3 % (15.0-51.0); MEAN CORPUSCULAR HEMOGLOBIN 30.7 pg (29.0-33.0); MEAN CORPUSCULAR HGB CONC 33.1 g/dl (32.0-37.0); MEAN CORPUSCULAR VOLUME 92.9 fl (82.0-101.0); MEAN PLATELET VOLUME 11.4 fl (7.4-10.4); MONOCYTE # 1.3 10^3/ul (0.3-0.9); MONOCYTES % 11.6 % (0.0-11.0); NEUTROPHIL # 8.1 10^3/ul (1.6-7.5); NEUTROPHILS % 72.5 % (39.0-77.0); PLATELET COUNT 249 10^3/UL (140-415); RED BLOOD COUNT 2.67 10^6/ul (4.70-6.10); RED CELL DISTRIBUTION WIDTH 13.1 % (11.5-14.5); WHITE BLOOD COUNT 11.2 10^3/ul (4.8-10.8)
[2017-03-24 06:14] LABS: INR 1.45; PROTIME 17.7 Sec (12.2-14.2); PT RATIO 1.4
[2017-03-24 06:21] LABS: CALCIUM 9.7 mg/dl (8.4-10.2); CREATININE 1.15 mg/dl (0.61-1.24); POTASSIUM 3.5 mmol/L (3.5-5.1)
[2017-03-24] MEDS: PANTOPRAZOLE (EC) 40 MG TAB PO SCH ×2 (06:25→18:09)
[2017-03-24] MEDS: ACETAMINOPHEN 325 MG TAB PO PRN ×3 (07:49→20:17)
[2017-03-24 07:55] VITALS: BP 130/77; RESP 18
--- NOTE | 2017-03-24 07:57 | CONS ---
Date/Time of Note Date/Time of Note DATE: 03/24/17 TIME: 07:50 Assessment/Plan Assessment/Plan Chief Complaint/Hosp Course 1) L hip re-implantion continue with IV vanco, till cx are neg pt to be maintained on oral pcn for several years L hip cx are NGTD 03/21 - cx remain NGTD continue with vanco for another day 03/22 - pt got last dose of vanco on 03/20 I asked nurse yesterday afternoon to continue with vanco wound cx from time of surgery are negative will re-start vanco and send cx from drainage 03/23 - wound cx is NGTD fevers improved but not resolved if cx remain neg thru tomorrow will d/c vanco 03/24 - still with low grade fever, wbc has improved venous doppler was neg will order soft tissue u/s to r/o discrete fluid collection all cx remain neg, but vanco to continue for today 2) anemia, s/p surgery pt getting hgb checked again in a few hours 03/21 - Hgb is stable and pulse and B/P are good 3) low grade fever no urinary or pulmonary symptoms re-start vanco and get cx from drainage tubes in L hip check cbc 03/23 - CBC is improved and fever is also improved wound cx is NGTD continue vanco, if fever resolved and cx remain NGTD will d/c vanco tomorrow 03/24 - still with low grade fevers but wbc is better continue vanco and order soft tissue u/s to look for discrete fluid collection doubt pt has an active infection Problems: Consultation Date/Type/Reason Admit Date/Time Mar 19, 2017 at 09:07 Initial Consult Date 03/20/17 Type of Consultation: ID 24 HR Interval Summary Free Text/Dictation pt still has swollen L thigh no N, V no chills Exam/Review of Systems Vital Signs Vitals Vital Signs Date Time Temp Pulse Resp B/P Pulse Ox O2 Delivery O2 Flow Rate FiO2 03/24/17 06:27 98.1 03/23/17 19:19 85 18 152/69 96 03/21/17 10:00 Room Air 03/20/17 11:00 2.0 Intake and Output 03/23/17 03/23/17 03/24/17 15:00 23:00 07:00 Intake Total 250 ml 1340 ml 750 ml Output Total 1700 ml 1100 ml Balance 250 ml -360 ml -350 ml Exam Constitutional: alert, oriented Eyes: nl sclera ENMT: mucosa pink and moist Respiratory: clear to auscultation Cardiovascular: regular rate and rhythm Gastrointestinal: non-tender, soft Extremities: other (L thigh is swollen without redness but some increase in heat) Results Result Diagram: 03/24/17 0415 03/24/17 0415 Results 24 hrs Laboratory Tests Test 03/23/17 14:45 03/23/17 20:45 03/24/17 04:15 Iron Level 11 L Total Iron Binding Capacity 208 L Percent Iron Saturation 5 L Ferritin 227.0 Vancomycin Level Trough 11.5 White Blood Count 11.2 H Red Blood Count 2.67 L Hemoglobin 8.2 L Hematocrit 24.8 L Mean Corpuscular Volume 92.9 Mean Corpuscular Hemoglobin 30.7 Mean Corpuscular Hemoglobin Concent 33.1 Red Cell Distribution Width 13.1 Platelet Count 249 # Mean Platelet Volume 11.4 H Neutrophils % 72.5 Lymphocytes % 8.3 L Monocytes % 11.6 H Eosinophils % 4.8 Basophils % 0.4 Nucleated Red Blood Cells % 0.0 Neutrophils # 8.1 H Lymphocytes # 0.9 Monocytes # 1.3 H Eosinophils # 0.5 Basophils # 0.0 Nucleated Red Blood Cells # 0.0 Prothrombin Time 17.7 H Prothrombin Time Ratio 1.4 INR International Normalized Ratio 1.45 Sodium Level 137 Potassium Level 3.5 Chloride Level 102 Carbon Dioxide Level 30 Anion Gap 9 Blood Urea Nitrogen 15 Creatinine 1.15 Glucose Level 154 Calcium Level 9.7 Medications Medications Current Medications Penicillin V Potassium (Penicillin V K) 500 mg BID PO Last administered on 03/23 20:55; Admin Dose 500 MG; Start 03/19/17 at 21:00 Acetaminophen/ Hydrocodone Bitart ([place] (5/325)) 1 tab Q4H PRN PO PAIN LEVEL 1 -3 Last administered on 03/23/17 09:55; Admin Dose 1 TAB; Start 03/19/17 at 19: 00 Acetaminophen/ Hydrocodone Bitart ([place] (5/325)) 2 tab Q4H PRN PO PAIN LEVEL 4 -7; Start 03/19/17 at 19:00 Hydromorphone HCl (Dilaudid) 1 mg Q3H PRN IV PAIN LEVEL 8-10; Start 03/19/17 at 19:00 Ondansetron HCl (Zofran Inj) 4 mg Q6H PRN IV NAUSEA AND/OR VOMITING; Start at 19:00 Bisacodyl (Dulcolax Supp) 10 mg Q12H PRN [place] CONSTIPATION; Start 03/19/17 at 19: 00 Magnesium Hydroxide (Milk Of Mag) 30 ml BID PRN PO CONSTIPATION; Start at 19:00 Sodium Biphosphate/ Sodium Phosphate (Fleet Enema) 133 ml DAILY PRN [place] CONSTIPATION; Start 03/19/17 at 19:00 Docusate Sodium (Colace) 100 mg BID PO Last administered on 03/23/17 20:55; Admin Dose 100 MG; Start 03/19/17 at 21:00 Diphenhydramine HCl (Benadryl) 25 mg Q6H PRN PO PRURITUS; Start 03/19/17 at 19: 00 Pantoprazole (Protonix Tab) 40 mg BID@06,18 PO Last administered on 03/24/17 06:25; Admin Dose 40 MG; Start 03/20/17 at 06:00 Pregabalin 50 mg 50 mg BID PO Last administered on 03/23/17 20:54; Admin Dose 50 MG; Start 03/20/17 at 10:00 Vancomycin HCl/ Sodium Chloride (Vancocin/NS) 250 ml @ 83.333 mls/ hr Q12H IVPB Last administered on 03/23/17 22:04; Admin Dose 83.333 MLS/HR; Start at 21:00 Acetaminophen (Tylenol Tab) 650 mg Q4H PRN PO PAIN AND OR ELEVATED TEMP Last administered on 03/24/17 07:49; Admin Dose 650 MG; Start 03/23/17 at 16:00 ALISHA SANDOVAL MD Mar 24, 2017 07:57
[2017-03-24] MEDS ORDERED: POTASSIUM CHLORIDE (SR) 10 MEQ TAB PO ONE (08:00)
--- NOTE | 2017-03-24 08:03 | CONS ---
Date/Time of Note Date/Time of Note DATE: 03/24/17 TIME: 08:01 Assessment/Plan Assessment/Plan Additional Assessment/Plan 1. Post op left hip replacement. 2. 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 3. Anemia, in part iron deficient, IV orn started. 4. Low grade temp, ultz ordered by ID, CXR and u.a and cult ordered as well. Consultation Date/Type/Reason Admit Date/Time Mar 19, 2017 at 09:07 Initial Consult Date 03/20/17 Type of Consultation: ID Detailed Summary Respiratory: No cough, No shortness of breath Cardiovascular: No chest pain Gastrointestinal: No no complaints Genitourinary: No no complaints Musculoskeletal: bone/joint pain (mild left hip pain) Exam/Review of Systems Vital Signs Vitals Vital Signs Date Time Temp Pulse Resp B/P Pulse Ox O2 Delivery O2 Flow Rate FiO2 03/24/17 07:55 98.2 70 18 130/77 97 03/21/17 10:00 Room Air 03/20/17 11:00 2.0 Intake and Output 03/23/17 03/23/17 03/24/17 15:00 23:00 07:00 Intake Total 250 ml 1340 ml 750 ml Output Total 1700 ml 1100 ml Balance 250 ml -360 ml -350 ml Exam Neck: No jvd Respiratory: clear to auscultation Cardiovascular: regular rate and rhythm Gastrointestinal: soft Musculoskeletal: joint tenderness (no left hip tend) Extremities: No edema (and no calf tend) Results Result Diagram: 03/24/17 0415 03/24/17 0415 Results 24 hrs Laboratory Tests Test 03/23/17 14:45 03/23/17 20:45 03/24/17 04:15 Iron Level 11 L Total Iron Binding Capacity 208 L Percent Iron Saturation 5 L Ferritin 227.0 Vancomycin Level Trough 11.5 White Blood Count 11.2 H Red Blood Count 2.67 L Hemoglobin 8.2 L Hematocrit 24.8 L Mean Corpuscular Volume 92.9 Mean Corpuscular Hemoglobin 30.7 Mean Corpuscular Hemoglobin Concent 33.1 Red Cell Distribution Width 13.1 Platelet Count 249 # Mean Platelet Volume 11.4 H Neutrophils % 72.5 Lymphocytes % 8.3 L Monocytes % 11.6 H Eosinophils % 4.8 Basophils % 0.4 Nucleated Red Blood Cells % 0.0 Neutrophils # 8.1 H Lymphocytes # 0.9 Monocytes # 1.3 H Eosinophils # 0.5 Basophils # 0.0 Nucleated Red Blood Cells # 0.0 Prothrombin Time 17.7 H Prothrombin Time Ratio 1.4 INR International Normalized Ratio 1.45 Sodium Level 137 Potassium Level 3.5 Chloride Level 102 Carbon Dioxide Level 30 Anion Gap 9 Blood Urea Nitrogen 15 Creatinine 1.15 Glucose Level 154 Calcium Level 9.7 Medications Medications Current Medications Penicillin V Potassium (Penicillin V K) 500 mg BID PO Last administered on 03/23 20:55; Admin Dose 500 MG; Start 03/19/17 at 21:00 Acetaminophen/ Hydrocodone Bitart ([place] (5/325)) 1 tab Q4H PRN PO PAIN LEVEL 1 -3 Last administered on 03/23/17 09:55; Admin Dose 1 TAB; Start 03/19/17 at 19: 00 Acetaminophen/ Hydrocodone Bitart ([place] (5/325)) 2 tab Q4H PRN PO PAIN LEVEL 4 -7; Start 03/19/17 at 19:00 Hydromorphone HCl (Dilaudid) 1 mg Q3H PRN IV PAIN LEVEL 8-10; Start 03/19/17 at 19:00 Ondansetron HCl (Zofran Inj) 4 mg Q6H PRN IV NAUSEA AND/OR VOMITING; Start at 19:00 Bisacodyl (Dulcolax Supp) 10 mg Q12H PRN [place] CONSTIPATION; Start 03/19/17 at 19: 00 Magnesium Hydroxide (Milk Of Mag) 30 ml BID PRN PO CONSTIPATION; Start at 19:00 Sodium Biphosphate/ Sodium Phosphate (Fleet Enema) 133 ml DAILY PRN [place] CONSTIPATION; Start 03/19/17 at 19:00 Docusate Sodium (Colace) 100 mg BID PO Last administered on 03/23/17 20:55; Admin Dose 100 MG; Start 03/19/17 at 21:00 Diphenhydramine HCl (Benadryl) 25 mg Q6H PRN PO PRURITUS; Start 03/19/17 at 19: 00 Pantoprazole (Protonix Tab) 40 mg BID@,18 PO Last administered on 03/24/17 06:25; Admin Dose 40 MG; Start 03/20/17 at 06:00 Pregabalin 50 mg 50 mg BID PO Last administered on 03/23/17 20:54; Admin Dose 50 MG; Start 03/20/17 at 10:00 Vancomycin HCl/ Sodium Chloride (Vancocin/NS) 250 ml @ 83.333 mls/ hr Q12H IVPB Last administered on 03/23/17 22:04; Admin Dose 83.333 MLS/HR; Start at 21:00 Acetaminophen (Tylenol Tab) 650 mg Q4H PRN PO PAIN AND OR ELEVATED TEMP Last administered on 03/24/17 07:49; Admin Dose 650 MG; Start 03/23/17 at 16:00 FELY TORRES MD Mar 24, 2017 08:03
[2017-03-24] MEDS: VANCOMYCIN 1.25 GM in SOD CHLORIDE 0.9% 250 ML IVPB SCH ×2 (08:46→20:20)
[2017-03-24] MEDS: PENICILLIN V K 250 MG TAB PO SCH ×2 (08:47→20:19)
[2017-03-24] MEDS: PREGABALIN 25 MG CAP PO SCH ×2 (08:47→20:18)
[2017-03-24] MEDS: DOCUSATE SODIUM 100 MG CAP PO SCH ×2 (08:47→20:18)
--- NOTE | 2017-03-24 10:14 | RADRPT ---
PROCEDURE: US Soft Tissue. CLINICAL INDICATION: Left thigh fluid collection. TECHNIQUE: Targeted sonographic imaging of the left thigh was performed. COMPARISON: None. FINDINGS: Superficial subcutaneous edema is seen within the visualized soft tissues of the left side. There i s a small focus of anechoic fluid measuring 10 mm in greatest diameter within the mid to deep subcut aneous soft tissues. Scattered acoustic shadowing is seen within the immediate surrounding soft tiss ues and may reflect the presence of scarring/fibrosis. IMPRESSION: Diffuse subcutaneous edema with small accumulation of fluid measuring 10 mm in greatest diameter. Dai rrounding scarring and fibrosis may also be present. RPTAT: [facility] .Raine Scott MD, MD Date Time Electronically viewed and signed by .Raine Scott MD, MD on 03/24/2017 10:13 .T/
[2017-03-24] MEDS: SOD FERRIC GLUC COMPLX 125 MG in SOD CHLORIDE 0.9% 100 ML IVPB SCH (13:09)
[2017-03-24 14:17] LABS: ADD UMIC NO; UR ASCORBIC ACID NEGATIVE (NEGATIVE); UR BILIRUBIN (Dip) NEGATIVE (NEGATIVE); UR BLOOD (Dip) NEGATIVE (NEGATIVE); UR CLARITY SLIGHTLY CLOUDY (CLEAR); UR COLOR YELLOW (YELLOW); UR GLUCOSE (Dip) NEGATIVE (NEGATIVE); UR KETONES (Dip) NEGATIVE (NEGATIVE); UR LEUKOCYTE ESTERASE (Dip) NEGATIVE Leu/ul (NEGATIVE); UR MUCUS FEW /HPF (NONE SEEN); UR NITRITE (Dip) NEGATIVE (NEGATIVE); UR RBC 0 /HPF (0-5); UR SPECIFIC GRAVITY (Dip) 1.018 (1.003-1.030); UR TOTAL PROTEIN (Dip) NEGATIVE (NEGATIVE); UR UROBILINOGEN (Dip) NEGATIVE (NEGATIVE)
--- NOTE | 2017-03-24 14:54 | RADRPT ---
PROCEDURE: XR Chest 1 View. CLINICAL INDICATION: Shortness of breath. TECHNIQUE: AP view of the chest was obtained. COMPARISON: March 20, 2017 FINDINGS: The cardiomediastinal silhouette is within normal limits. The lungs are hypoinflated. Mild interstit ial prominence in both lungs is unchanged. Atelectasis is seen at the lung bases. No consolidations are identified. No pneumothorax is seen. Osseous structures are intact. IMPRESSION: Hypoinflated lungs with atelectasis at the lung bases. Stable mild interstitial prominence in both lungs. Interstitial prominence could be chronic. RPTAT: AA .Omid Bradford MD, MD Date Time Electronically viewed and signed by .Omid Bradford MD, on 03/24/2017 14:54 .P/
[2017-03-24] MEDS ORDERED: WARFARIN 2 MG TAB PO SCH (17:00)
--- NOTE | 2017-03-24 17:52 | PN ---
Date/Time of Note Date/Time of Note DATE: 03/24/17 TIME: 17:49 Assessment/Plan Lines/Catheters IV Catheter Type (from Nrsg): Saline Lock Giraldo in Place (from Nrsg): No (discontinued) Assessment/Plan Assessment/Plan Stable, POD #5 -continue abx per infectious disease -pain meds as needed -Coumadin/SCDs for DVT prophylaxis -OOB with PT - TDWB -monitor temp and VS -check AM labs including CBC and INR -Coumadin 4mg at 1700 today -posterior hip precautions -discharge planning Subjective 24 Hr Interval Summary No acute overnight events. Still having intermittent low grade fevers. Doppler negative for DVT. Pain controlled with oral pain medication. Progressing with PT. Currently on Vancomycin IV and pencillin PO. Exam/Review of Systems Vital Signs Vitals Vital Signs Date Time Temp Pulse Resp B/P Pulse Ox O2 Delivery O2 Flow Rate FiO2 03/24/17 13:00 99.6 03/24/17 07:55 70 18 130/77 97 03/21/17 10:00 Room Air 03/20/17 11:00 2.0 Intake and Output 03/23/17 03/23/17 03/24/17 15:00 23:00 07:00 Intake Total 250 ml 1340 ml 750 ml Output Total 1700 ml 1100 ml Balance 250 ml -360 ml -350 ml Exam Free Text/Dictation Dressing dry Incision clean, dry, and intact without redness or drainage 5/5 Quadriceps, Tibialis Anterior, EHL, Gastroc, Soleus, Peroneals Normal sensation Palpable DT/PT, CR <2 sec No distal edema Results Result Diagram: 03/24/17 0415 03/24/17 0415 ANIA ARCOS PA-C Mar 24, 2017 17:52
--- NOTE | 2017-03-24 17:57 | PDOCDIS ---
Discharge Instructions DIAGNOSIS Discharge Diagnosis: s/p I&D left hip, removal of abx spacer, revision JUANCARLOS CONDITION Patient Condition: Good HOME CARE INSTRUCTIONS: Diet Instructions: RegularSpecial Diet: REGULAR ACTIVITY: Activity Restrictions: Slowly Increase Activity Rest between Activity Avoid heavy lifting Do not operate Machinery Do not operate Power Tool Avoid Heavy Housework Keep Limb Elevated Bathing Restrictions: Shower FOLLOW UP/APPOINTMENTS Appointments follow up in the office on 03/30/17 OTHER ORDERS: Other Orders: S/P Posterior JUANCARLOS Physical Therapy: Three times per week at home x 3 weeks Daily in Rehab/SNF WB STATUS: Touch down weight bearing Strengthening exercises for both upper and un-operated lower extremities. 1. Gait training with front wheeled walker 2. Wide base gait, no pivot turns. 3. Abductor strengthening. 4. Quadriceps and hamstring strengthening. 5. May switch to cane in contra lateral hand 6 weeks after surgery. 6. Physical Therapy can open case if nursing is not available. 7. Ice Packs while at rest to surgical wound for 20 minutes, 3 times/day. 8. Patient requires mobile SCDs to reduce risk of developing DVT following JUANCARLOS. Patient will use the mobile SCDs for 30 days postoperatively. Hip Precautions: no flexion beyond 90 degrees, no adduction, no internal rotation Bathing assistance by home health aide twice weekly if Medicare patient. Occupational Therapy: Evaluation for assistive devices and ADL training. Wound Care: Keep incision dry & covered with Tegaderm until first visit with Dr. Koo Anticoagulation Orders: Adjusted Coumadin dose x 3 weeks from the date of surgery. Target INR 1.7-2.0. Prothrombin time & INR are done every Thursday and for three weeks post- operatively. Please call and leave a message with Heidi @ [phone] with results the same day before the close of business. The patient should not eat green leafy vegetables. Follow-up: Call for an appointment with Dr. Koo in 1 week after discharged from hospital at . DME Orders: [facility], 3-in-1 [employer], Mobile SCDs ANIA ARCOS PA-C Mar 24, 2017 17:57
[2017-03-24] MEDS ORDERED: PANT40TA4 PO (17:59)
[2017-03-24] MEDS ORDERED: COU2 PO (17:59)
[2017-03-24] MEDS ORDERED: COU1 PO (17:59)
[2017-03-24] MEDS ORDERED: LYRI25 PO (17:59)
[2017-03-24] MEDS ORDERED: HYDR-3498 PO (17:59)
[2017-03-24 19:08] VITALS: BP 126/59; RESP 18
[2017-03-24 20:00] VITALS: BP 126/77; RESP 18
[2017-03-25 06:03] LABS: ADD SCAN DIFF NO
[2017-03-25 06:16] VITALS: BP 117/58; RESP 18
[2017-03-25] MEDS: PANTOPRAZOLE (EC) 40 MG TAB PO SCH ×2 (06:18→17:20)
[2017-03-25 06:31] LABS: BASOPHILS % 0.3 % (0.0-2.0); EOSINOPHILS # 0.7 10^3/ul (0.0-0.5); HEMATOCRIT 23.3 % (42.0-52.0); HEMOGLOBIN 7.7 g/dl (14.0-18.0); LYMPHOCYTES # 0.8 10^3/ul (0.8-2.9); MEAN CORPUSCULAR HEMOGLOBIN 30.6 pg (29.0-33.0); MEAN CORPUSCULAR VOLUME 92.5 fl (82.0-101.0); MEAN PLATELET VOLUME 11.5 fl (7.4-10.4); MONOCYTE # 1.2 10^3/ul (0.3-0.9); NEUTROPHIL # 7.8 10^3/ul (1.6-7.5); NEUTROPHILS % 71.8 % (39.0-77.0); PLATELET COUNT 253 10^3/UL (140-415); RED BLOOD COUNT 2.52 10^6/ul (4.70-6.10); WHITE BLOOD COUNT 10.9 10^3/ul (4.8-10.8)
[2017-03-25 06:41] LABS: CALCIUM 9.7 mg/dl (8.4-10.2); CREATININE 1.14 mg/dl (0.61-1.24); INR 1.97; POTASSIUM 3.6 mmol/L (3.5-5.1); PROTIME 22.6 Sec (12.2-14.2); PT RATIO 1.8
[2017-03-25 07:10] LABS: MAGNESIUM 1.8 mg/dl (1.7-2.5); PHOSPHORUS 3.5 mg/dl (2.5-4.9)
--- NOTE | 2017-03-25 07:34 | CONS ---
Date/Time of Note Date/Time of Note DATE: 03/25/17 TIME: 07:29 Assessment/Plan Assessment/Plan Chief Complaint/Hosp Course 1) L hip re-implantion continue with IV vanco, till cx are neg pt to be maintained on oral pcn for several years L hip cx are NGTD 03/21 - cx remain NGTD continue with vanco for another day 03/22 - pt got last dose of vanco on 03/20 I asked nurse yesterday afternoon to continue with vanco wound cx from time of surgery are negative will re-start vanco and send cx from drainage 03/23 - wound cx is NGTD fevers improved but not resolved if cx remain neg thru tomorrow will d/c vanco 03/24 - still with low grade fever, wbc has improved venous doppler was neg will order soft tissue u/s to r/o discrete fluid collection all cx remain neg, but vanco to continue for today 03/25 -u/s of thigh shows mainly edema with just a small component of fluid collection, no need to explore this continue with IV vanco till patient is discharged, continue po David for about 2 years 2) anemia, s/p surgery pt getting hgb checked again in a few hours 03/21 - Hgb is stable and pulse and B/P are good 03/25 - pt got iron infusion yesterday Hgb is a bit lower, blood tx might help with his ability to participate in PT 3) low grade fever no urinary or pulmonary symptoms re-start vanco and get cx from drainage tubes in L hip check cbc 03/23 - CBC is improved and fever is also improved wound cx is NGTD continue vanco, if fever resolved and cx remain NGTD will d/c vanco tomorrow 03/24 - still with low grade fevers but wbc is better continue vanco and order soft tissue u/s to look for discrete fluid collection doubt pt has an active infection 03/25 - fever and WBC are improving with time CXR does not show any acute infiltrate and u/a was benign thigh u/s does not show a significant fluid collection mostly just edema doubt pt has active infection when pt ready for discharge will d/c vanco Problems: Consultation Date/Type/Reason Admit Date/Time Mar 19, 2017 at 09:07 Initial Consult Date 03/20/17 Type of Consultation: ID [id number] HR Interval Summary Free Text/Dictation doing ok, will participate in PT today no N, V, SOB, D Exam/Review of Systems Vital Signs Vitals Vital Signs Date Time Temp Pulse Resp B/P Pulse Ox O2 Delivery O2 Flow Rate FiO2 03/25/17 06:16 98.8 18 117/58 97 Room Air 03/24/17 19:08 77 Intake and Output 03/24/17 03/24/17 03/25/17 15:00 23:00 07:00 Intake Total 360 ml 1120 ml 1050 ml Output Total 1200 ml 1500 ml Balance 360 ml -80 ml -450 ml Exam Constitutional: alert, oriented Eyes: nl sclera ENMT: mucosa pink and moist Respiratory: clear to auscultation Cardiovascular: regular rate and rhythm Gastrointestinal: non-tender, soft Extremities: other (L thigh still larger but less warm) Results Result Diagram: 03/25/17 0435 03/25/17 0435 Results 24 hrs Laboratory Tests Test 03/24/17 12:35 03/25/17 04:35 Urine Color YELLOW Urine Clarity SLIGHTLY CLOUDY A Urine pH 6.0 Urine Specific [place] 1.018 Urine Ketones NEGATIVE Urine Nitrite NEGATIVE Urine Bilirubin NEGATIVE Urine Urobilinogen NEGATIVE Urine Leukocyte Esterase NEGATIVE Urine Microscopic RBC 0 Urine Microscopic WBC 0 Urine Mucus FEW A Urine Hemoglobin NEGATIVE Urine Glucose NEGATIVE Urine Total Protein NEGATIVE White Blood Count 10.9 H Red Blood Count 2.52 L Hemoglobin 7.7 L Hematocrit 23.3 L Mean Corpuscular Volume 92.5 Mean Corpuscular Hemoglobin 30.6 Mean Corpuscular Hemoglobin Concent 33.0 Red Cell Distribution Width 13.0 Platelet Count 253 Mean Platelet Volume 11.5 H Neutrophils % 71.8 Lymphocytes % 7.0 L Monocytes % 11.0 Eosinophils % 6.0 Basophils % 0.3 Nucleated Red Blood Cells % 0.0 Neutrophils # 7.8 H Lymphocytes # 0.8 Monocytes # 1.2 H Eosinophils # 0.7 H Basophils # 0.0 Nucleated Red Blood Cells # 0.0 Prothrombin Time 22.6 #H Prothrombin Time Ratio 1.8 INR International Normalized Ratio 1.97 Sodium Level 137 Potassium Level 3.6 Chloride Level 104 Carbon Dioxide Level 28 Anion Gap 9 Blood Urea Nitrogen 14 Creatinine 1.14 Glucose Level 134 Calcium Level 9.7 Phosphorus Level 3.5 Magnesium Level 1.8 Medications Medications Current Medications Penicillin V Potassium (Penicillin V K) 500 mg BID PO Last administered on 03/24 20:19; Admin Dose 500 MG; Start 03/19/17 at 21:00 Acetaminophen/ Hydrocodone Bitart ([place] (5/325)) 1 tab Q4H PRN PO PAIN LEVEL 1 -3 Last administered on 03/23/17 09:55; Admin Dose 1 TAB; Start 03/19/17 at 19: 00 Acetaminophen/ Hydrocodone Bitart ([place] (5/325)) 2 tab Q4H PRN PO PAIN LEVEL 4 -7; Start 03/19/17 at 19:00 Hydromorphone HCl (Dilaudid) 1 mg Q3H PRN IV PAIN LEVEL 8-10; Start 03/19/17 at 19:00 Ondansetron HCl (Zofran Inj) 4 mg Q6H PRN IV NAUSEA AND/OR VOMITING; Start at 19:00 Bisacodyl (Dulcolax Supp) 10 mg Q12H PRN [place] CONSTIPATION; Start 03/19/17 at 19: 00 Magnesium Hydroxide (Milk Of Mag) 30 ml BID PRN PO CONSTIPATION; Start at 19:00 Sodium Biphosphate/ Sodium Phosphate (Fleet Enema) 133 ml DAILY PRN [place] CONSTIPATION; Start 03/19/17 at 19:00 Docusate Sodium (Colace) 100 mg BID PO Last administered on 03/24/17 20:18; Admin Dose 100 MG; Start 03/19/17 at 21:00 Diphenhydramine HCl (Benadryl) 25 mg Q6H PRN PO PRURITUS; Start 03/19/17 at 19: 00 Pantoprazole (Protonix Tab) 40 mg BID@06,18 PO Last administered on 03/25/17 06:18; Admin Dose 40 MG; Start 03/20/17 at 06:00 Pregabalin 50 mg 50 mg BID PO Last administered on 03/24/17 20:18; Admin Dose 50 MG; Start 03/20/17 at 10:00 Vancomycin HCl/ Sodium Chloride (Vancocin/NS) 250 ml @ 83.333 mls/ hr Q12H IVPB Last administered on 03/24/17 20:20; Admin Dose 83.333 MLS/HR; Start at 21:00 Acetaminophen 650 mg 650 mg Q4H PRN PO PAIN AND OR ELEVATED TEMP Last administered on 03/24/17 20:17; Admin Dose 650 MG; Start 03/23/17 at 16:00 Ferric Sodium Gluconate Complex/ Sodium Chloride (Ferrlecit/NS) 110 ml @ 110 mls/hr Q24H IVPB Last administered on 03/24/17 13:09; Admin Dose 110 MLS/HR; Start 03/24/17 at 10:00; Stop 03/28/17 at 10:59 ALISHA SANDOVAL MD Mar 25, 2017 07:34
[2017-03-25 08:12] VITALS: BP 146/72; RESP 18
--- NOTE | 2017-03-25 08:17 | CONS ---
Date/Time of Note Date/Time of Note DATE: 03/25/17 TIME: 08:15 Assessment/Plan Assessment/Plan Additional Assessment/Plan 1. Post op left hip replacement. 2. 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 3. Anemia has increased, rev with ortho>2 units packed celles to be given, cont iv iron 4. Low grade temp persists, cxr neg, ultz of hip and u/a neg as wbc is nl->ok to dc with close follow up Consultation Date/Type/Reason Admit Date/Time Mar 19, 2017 at 09:07 Initial Consult Date 03/20/17 Type of Consultation: ID Detailed Summary Respiratory: No cough, No shortness of breath Cardiovascular: No chest pain, No orthopenea Gastrointestinal: no complaints Musculoskeletal: bone/joint pain (mild left hip pain) Exam/Review of Systems Vital Signs Vitals Vital Signs Date Time Temp Pulse Resp B/P Pulse Ox O2 Delivery O2 Flow Rate FiO2 03/25/17 08:12 98.5 77 18 146/72 97 03/25/17 06:16 Room Air Intake and Output 03/24/17 03/24/17 03/25/17 15:00 23:00 07:00 Intake Total 360 ml 1120 ml 1050 ml Output Total 1200 ml 1500 ml Balance 360 ml -80 ml -450 ml Exam Neck: No jvd Respiratory: clear to auscultation Cardiovascular: regular rate and rhythm Gastrointestinal: soft Extremities: No edema (and no calf tend) Results Result Diagram: 03/25/17 0435 03/25/17 0435 Results 24 hrs Laboratory Tests Test 03/24/17 12:35 03/25/17 04:35 Urine Color YELLOW Urine Clarity SLIGHTLY CLOUDY A Urine pH 6.0 Urine Specific [place] 1.018 Urine Ketones NEGATIVE Urine Nitrite NEGATIVE Urine Bilirubin NEGATIVE Urine Urobilinogen NEGATIVE Urine Leukocyte Esterase NEGATIVE Urine Microscopic RBC 0 Urine Microscopic WBC 0 Urine Mucus FEW A Urine Hemoglobin NEGATIVE Urine Glucose NEGATIVE Urine Total Protein NEGATIVE White Blood Count 10.9 H Red Blood Count 2.52 L Hemoglobin 7.7 L Hematocrit 23.3 L Mean Corpuscular Volume 92.5 Mean Corpuscular Hemoglobin 30.6 Mean Corpuscular Hemoglobin Concent 33.0 Red Cell Distribution Width 13.0 Platelet Count 253 Mean Platelet Volume 11.5 H Neutrophils % 71.8 Lymphocytes % 7.0 L Monocytes % 11.0 Eosinophils % 6.0 Basophils % 0.3 Nucleated Red Blood Cells % 0.0 Neutrophils # 7.8 H Lymphocytes # 0.8 Monocytes # 1.2 H Eosinophils # 0.7 H Basophils # 0.0 Nucleated Red Blood Cells # 0.0 Prothrombin Time 22.6 #H Prothrombin Time Ratio 1.8 INR International Normalized Ratio 1.97 Sodium Level 137 Potassium Level 3.6 Chloride Level 104 Carbon Dioxide Level 28 Anion Gap 9 Blood Urea Nitrogen 14 Creatinine 1.14 Glucose Level 134 Calcium Level 9.7 Phosphorus Level 3.5 Magnesium Level 1.8 Medications Medications Current Medications Penicillin V Potassium (Penicillin V K) 500 mg BID PO Last administered on 03/24 20:19; Admin Dose 500 MG; Start 03/19/17 at 21:00 Acetaminophen/ Hydrocodone Bitart ([place] (5/325)) 1 tab Q4H PRN PO PAIN LEVEL 1 -3 Last administered on 03/23/17 09:55; Admin Dose 1 TAB; Start 03/19/17 at 19: 00 Acetaminophen/ Hydrocodone Bitart ([place] (5/325)) 2 tab Q4H PRN PO PAIN LEVEL 4 -7; Start 03/19/17 at 19:00 Hydromorphone HCl (Dilaudid) 1 mg Q3H PRN IV PAIN LEVEL 8-10; Start 03/19/17 at 19:00 Ondansetron HCl (Zofran Inj) 4 mg Q6H PRN IV NAUSEA AND/OR VOMITING; Start at 19:00 Bisacodyl (Dulcolax Supp) 10 mg Q12H PRN [place] CONSTIPATION; Start 03/19/17 at 19: 00 Magnesium Hydroxide (Milk Of Mag) 30 ml BID PRN PO CONSTIPATION; Start at 19:00 Sodium Biphosphate/ Sodium Phosphate (Fleet Enema) 133 ml DAILY PRN [place] CONSTIPATION; Start 03/19/17 at 19:00 Docusate Sodium (Colace) 100 mg BID PO Last administered on 03/24/17 20:18; Admin Dose 100 MG; Start 03/19/17 at 21:00 Diphenhydramine HCl (Benadryl) 25 mg Q6H PRN PO PRURITUS; Start 03/19/17 at 19: 00 Pantoprazole (Protonix Tab) 40 mg BID@,18 PO Last administered on 03/25/17 06:18; Admin Dose 40 MG; Start 03/20/17 at 06:00 Pregabalin 50 mg 50 mg BID PO Last administered on 03/24/17 20:18; Admin Dose 50 MG; Start 03/20/17 at 10:00 Vancomycin HCl/ Sodium Chloride (Vancocin/NS) 250 ml @ 83.333 mls/ hr Q12H IVPB Last administered on 03/24/17 20:20; Admin Dose 83.333 MLS/HR; Start at 21:00 Acetaminophen 650 mg 650 mg Q4H PRN PO PAIN AND OR ELEVATED TEMP Last administered on 03/24/17 20:17; Admin Dose 650 MG; Start 03/23/17 at 16:00 Ferric Sodium Gluconate Complex/ Sodium Chloride (Ferrlecit/NS) 110 ml @ 110 mls/hr Q24H IVPB Last administered on 03/24/17 13:09; Admin Dose 110 MLS/HR; Start 03/24/17 at 10:00; Stop 03/28/17 at 10:59 FELY TORRES MD Mar 25, 2017 08:17
--- NOTE | 2017-03-25 08:37 | PN ---
Date/Time of Note Date/Time of Note DATE: 03/25/17 TIME: 08:34 Assessment/Plan Lines/Catheters IV Catheter Type (from Nrsg): Saline Lock Giraldo in Place (from Nrsg): No (discontinued) Assessment/Plan Assessment/Plan Stable, POD #6 -continue abx therapy per ID -pain meds as needed -Coumadin 3mg/SCDs for DVT prophylaxis -check AM labs -H&H low today. Will plan to transfuse 2 units PRBCs -posterior hip precautions -encourage IC and sitting up out of bed today -OOB with PT - TDW[facility] -discharge planning. Will plan to discharge home tomorrow Subjective 24 Hr Interval Summary No acute overnight events. Denies significant pain. Temp better controlled and WBC trending down. H&H low this morning, will plan to transfuse 2 units PRBCs. Possible d/c home tomorrow. Exam/Review of Systems Vital Signs Vitals Vital Signs Date Time Temp Pulse Resp B/P Pulse Ox O2 Delivery O2 Flow Rate FiO2 03/25/17 08:12 98.5 77 18 146/72 97 03/25/17 06:16 Room Air Intake and Output 03/24/17 03/24/17 03/25/17 15:00 23:00 07:00 Intake Total 360 ml 1120 ml 1050 ml Output Total 1200 ml 1500 ml Balance 360 ml -80 ml -450 ml Exam Free Text/Dictation Dressing dry Incision clean, dry, and intact without redness or drainage 5/5 Quadriceps, Tibialis Anterior, EHL, Gastroc, Soleus, Peroneals Normal sensation Palpable DT/PT, CR <2 sec No distal edema Results Result Diagram: 03/25/17 0435 03/25/17 0435 ANIA ARCOS PA-C Mar 25, 2017 08:37
[2017-03-25] MEDS: PENICILLIN V K 250 MG TAB PO SCH ×2 (09:34→20:25)
[2017-03-25] MEDS: PREGABALIN 25 MG CAP PO SCH ×2 (09:34→20:25)
[2017-03-25] MEDS: DOCUSATE SODIUM 100 MG CAP PO SCH ×2 (09:34→20:25)
[2017-03-25] MEDS: VANCOMYCIN 1.25 GM in SOD CHLORIDE 0.9% 250 ML IVPB SCH ×2 (09:35→20:03)
--- NOTE | 2017-03-25 12:09 | CONS ---
DATE OF ADMISSION: 03/19/2017 DATE OF CONSULTATION: INTERNAL MEDICINE CONSULTATION REQUESTING PHYSICIAN: Dr. Vikas Mccracken REASON FOR CONSULTATION: Preoperative evaluation. HISTORY OF PRESENT ILLNESS: Mr. Calero is very pleasant 66-year-old male who is to be admitted that [facility] for a left hip redo for total hip prosthesis. The patient wishes to p roceed with this as soon as possible. The patient to be admitted by Dr. Mccracken on 03/19/2017 for th e left hip redo. PAST MEDICAL HISTORY: 1. Hypertension. 2. Glucose intolerance. 3. Hyperlipidemia. 4. Osteoarthritis. 5. History of left hip prosthesis. 6. History of osteomyelitis of the left hip prosthesis. CURRENT MEDICATIONS: Diovan 160 mg a day. ALLERGIES: 1. PENICILLIN. 2. SULFA. SOCIAL HISTORY: The patient is and lives with his . The patient does not smoke and dri nks alcohol rarely. REVIEW OF SYSTEMS: HEENT: Negative. CARDIOVASCULAR: The patient denies any chest pain, palpitations, or claudication. PULMONARY: The patient denies any cough, sputum production, shortness of breath, paroxysmal nocturn al dyspnea, dyspnea on exertion, or orthopnea. GASTROINTESTINAL: The patient denies any abdominal pain, nausea, vomiting, diarrhea, change in casey l movements, or other symptomatology. GENITOURINARY: The patient denies any dysuria, hematuria, increased urinary frequency, or nocturia. HEMATOLOGIC: The patient denies any easy bruisability, petechiae, bleeding gums, or prior coagulopa thy. NEUROLOGIC: Negative. PHYSICAL EXAMINATION: VITAL SIGNS: Blood pressure 128/70, pulse 68, respirations 18. GENERAL: A well-developed, well-nourished male in no acute distress. HEENT: Eyes: Sclerae white. Conjunctivae clear. Pupils equal, round, reactive to light. Ears no rmal. Throat normal. NECK: Supple, no bruits. No JVD. CHEST: Clear. HEART: Regular rate and rhythm without rubs, murmurs, or gallops. BACK: No CVA tenderness. ABDOMEN: Soft, nontender, no palpable masses or organomegaly. No bruits are noted. GENITOURINARY AND RECTAL: Deferred. EXTREMITIES: No clubbing, cyanosis, or edema. LYMPHATICS: No adenopathy. NEUROLOGIC: No focal findings. IMPRESSION: A 66-year-old male to be admitted on 03/19/2017 at [facility] for a l eft hip redo by Dr. Vikas Mccracken. The patient has no contraindications to this planned procedure. Thank you for allowing me to participate in this very pleasant gentleman's care. DR. CALEB CORADO DICTATED FOR DR. MCCRACKEN Dictated By: VIKAS MCCRACKEN MD EZ/NTS Conf#: [id number] DID#: [id number] CC: VIKAS MCCRACKEN MD;*EndCC*
[2017-03-25] MEDS: SOD FERRIC GLUC COMPLX 125 MG in SOD CHLORIDE 0.9% 100 ML IVPB SCH (13:47)
[2017-03-25] MEDS ORDERED: WARFARIN 3 MG TAB PO SCH (17:00)
[2017-03-25 19:21] VITALS: BP 132/63; RESP 20
[2017-03-25 23:15] VITALS: BP 127/66; PULSE 72; RESP 18
[2017-03-25 23:30] VITALS: BP 128/60; PULSE 74; RESP 18
[2017-03-25 23:44] VITALS: BP 134/68; RESP 20
[2017-03-26 00:01] VITALS: BP 130/58; PULSE 78; RESP 18
[2017-03-26 01:00] VITALS: BP 130/58; PULSE 78; RESP 17
[2017-03-26] MEDS: ACETAMINOPHEN 325 MG TAB PO PRN (01:42)
[2017-03-26 02:00] VITALS: BP 136/62; PULSE 79; RESP 17
[2017-03-26 02:15] VITALS: BP 140/64; RESP 17
[2017-03-26 03:00] VITALS: BP 132/60; PULSE 78; RESP 17
[2017-03-26] MEDS: PANTOPRAZOLE (EC) 40 MG TAB PO SCH (05:20)
[2017-03-26] MEDS: HYDROCODONE/APAP (5/325) TAB PO PRN (05:20)
[2017-03-26 05:48] LABS: ADD SCAN DIFF NO
[2017-03-26 06:08] LABS: BASOPHIL # 0.1 10^3/ul (0.0-0.1); BASOPHILS % 0.5 % (0.0-2.0); EOSINOPHILS # 0.6 10^3/ul (0.0-0.5); EOSINOPHILS % 5.9 % (0.0-7.0); HEMATOCRIT 28.9 % (42.0-52.0); HEMOGLOBIN 9.3 g/dl (14.0-18.0); LYMPHOCYTES # 0.7 10^3/ul (0.8-2.9); LYMPHOCYTES % 6.8 % (15.0-51.0); MEAN CORPUSCULAR HEMOGLOBIN 28.7 pg (29.0-33.0); MEAN CORPUSCULAR HGB CONC 32.2 g/dl (32.0-37.0); MEAN CORPUSCULAR VOLUME 89.2 fl (82.0-101.0); MEAN PLATELET VOLUME 11.8 fl (7.4-10.4); MONOCYTE # 1.1 10^3/ul (0.3-0.9); MONOCYTES % 10.2 % (0.0-11.0); NEUTROPHIL # 7.4 10^3/ul (1.6-7.5); NEUTROPHILS % 72.2 % (39.0-77.0); RED BLOOD COUNT 3.24 10^6/ul (4.70-6.10); WHITE BLOOD COUNT 10.3 10^3/ul (4.8-10.8)
[2017-03-26 06:11] LABS: INR 1.89; PROTIME 21.9 Sec (12.2-14.2); PT RATIO 1.7
[2017-03-26 06:15] LABS: PLATELET COUNT 202 10^3/UL (140-415)
[2017-03-26 06:16] LABS: CALCIUM 9.7 mg/dl (8.4-10.2); CREATININE 1.15 mg/dl (0.61-1.24); POTASSIUM 3.7 mmol/L (3.5-5.1)
--- NOTE | 2017-03-26 08:01 | CONS ---
Date/Time of Note Date/Time of Note DATE: 03/26/17 TIME: 07:59 Assessment/Plan Assessment/Plan Additional Assessment/Plan 1. Stable post op hip replacement, nax Temp 99.3, fever w/u negative and feels well>>ok to dc per ortho 2. Hct has increased as expected after transfusion. 3. Hx PE/DVT-INR nearly therapeutic. Consultation Date/Type/Reason Admit Date/Time Mar 19, 2017 at 09:07 Initial Consult Date 03/20/17 Type of Consultation: ID Detailed Summary Respiratory: No cough, No shortness of breath Cardiovascular: No chest pain Gastrointestinal: no complaints Genitourinary: no complaints Musculoskeletal: bone/joint pain (mild right hip discomfort) Exam/Review of Systems Vital Signs Vitals Vital Signs Date Time Temp Pulse Resp B/P Pulse Ox O2 Delivery O2 Flow Rate FiO2 03/26/17 03:00 98.3 78 17 132/60 99 Room Air Intake and Output 03/25/17 03/25/17 03/26/17 15:00 23:00 07:00 Intake Total 360 ml 2760 ml 1150 ml Output Total 1000 ml 1300 ml Balance 360 ml 1760 ml -150 ml Exam Neck: No jvd Respiratory: clear to auscultation Cardiovascular: regular rate and rhythm Gastrointestinal: soft Extremities: No edema (and no calf tend) Results Result Diagram: 03/26/17 0445 03/26/17 0445 Results 24 hrs Laboratory Tests Test 03/26/17 04:45 03/26/17 05:51 White Blood Count 10.3 Red Blood Count 3.24 #L Hemoglobin 9.3 #L Hematocrit 28.9 #L Mean Corpuscular Volume 89.2 Mean Corpuscular Hemoglobin 28.7 L Mean Corpuscular Hemoglobin Concent 32.2 Red Cell Distribution Width 15.0 H Platelet Count 202 # Mean Platelet Volume 11.8 H Neutrophils % 72.2 Lymphocytes % 6.8 L Monocytes % 10.2 Eosinophils % 5.9 Basophils % 0.5 Nucleated Red Blood Cells % 0.0 Neutrophils # 7.4 Lymphocytes # 0.7 L Monocytes # 1.1 H Eosinophils # 0.6 H Basophils # 0.1 Nucleated Red Blood Cells # 0.0 Prothrombin Time 21.9 H Prothrombin Time Ratio 1.7 INR International Normalized Ratio 1.89 Sodium Level 138 Potassium Level 3.7 Chloride Level 105 Carbon Dioxide Level 28 Anion Gap 9 Blood Urea Nitrogen 13 Creatinine 1.15 Glucose Level 138 Hemoglobin A1c 5.4 Calcium Level 9.7 Lab Scanned Report BLOOD TRANSFUSION Medications Medications Current Medications Penicillin V Potassium (Penicillin V K) 500 mg BID PO Last administered on 03/25 20:25; Admin Dose 500 MG; Start 03/19/17 at 21:00 Acetaminophen/ Hydrocodone Bitart ([place] (5/325)) 1 tab Q4H PRN PO PAIN LEVEL 1 -3 Last administered on 03/26/17 05:20; Admin Dose 1 TAB; Start 03/19/17 at 19: 00 Acetaminophen/ Hydrocodone Bitart ([place] (5/325)) 2 tab Q4H PRN PO PAIN LEVEL 4 -7; Start 03/19/17 at 19:00 Hydromorphone HCl (Dilaudid) 1 mg Q3H PRN IV PAIN LEVEL 8-10; Start 03/19/17 at 19:00 Ondansetron HCl (Zofran Inj) 4 mg Q6H PRN IV NAUSEA AND/OR VOMITING; Start at 19:00 Bisacodyl (Dulcolax Supp) 10 mg Q12H PRN [place] CONSTIPATION; Start 03/19/17 at 19: 00 Magnesium Hydroxide (Milk Of Mag) 30 ml BID PRN PO CONSTIPATION; Start at 19:00 Sodium Biphosphate/ Sodium Phosphate (Fleet Enema) 133 ml DAILY PRN [place] CONSTIPATION; Start 03/19/17 at 19:00 Docusate Sodium (Colace) 100 mg BID PO Last administered on 03/25/17 20:25; Admin Dose 100 MG; Start 03/19/17 at 21:00 Diphenhydramine HCl (Benadryl) 25 mg Q6H PRN PO PRURITUS; Start 03/19/17 at 19: 00 Pantoprazole (Protonix Tab) 40 mg BID@06,18 PO Last administered on 03/26/17 05:20; Admin Dose 40 MG; Start 03/20/17 at 06:00 Pregabalin 50 mg 50 mg BID PO Last administered on 03/25/17 20:25; Admin Dose 50 MG; Start 03/20/17 at 10:00 Vancomycin HCl/ Sodium Chloride (Vancocin/NS) 250 ml @ 83.333 mls/ hr Q12H IVPB Last administered on 03/25/17 20:03; Admin Dose 83.333 MLS/HR; Start at 21:00 Acetaminophen 650 mg 650 mg Q4H PRN PO PAIN AND OR ELEVATED TEMP Last administered on 03/26/17 01:42; Admin Dose 650 MG; Start 03/23/17 at 16:00 Ferric Sodium Gluconate Complex/ Sodium Chloride (Ferrlecit/NS) 110 ml @ 110 mls/hr Q24H IVPB Last administered on 03/25/17 13:47; Admin Dose 110 MLS/HR; Start 03/24/17 at 10:00; Stop 03/28/17 at 10:59 FELY TORRES MD Mar 26, 2017 08:00
--- NOTE | 2017-03-26 08:04 | PN ---
Date/Time of Note Date/Time of Note DATE: 03/26/17 TIME: 08:02 Assessment/Plan Lines/Catheters IV Catheter Type (from Nrsg): Saline Lock Giraldo in Place (from Nrsg): No Assessment/Plan Assessment/Plan Stable, POD #7 -continue PO penicillin at home -pain meds as needed -Coumadin/SCDs -OOB with PT -posterior hip precautions -dressing changed -d/c home today -follow up in the office in 1 week Subjective 24 Hr Interval Summary No acute overnight events. Denies significant pain. H&H much better after transfusion. Was OOB much more yesterday and has remained afebrile. Stable for d /c home today. Exam/Review of Systems Vital Signs Vitals Vital Signs Date Time Temp Pulse Resp B/P Pulse Ox O2 Delivery O2 Flow Rate FiO2 03/26/17 03:00 98.3 78 17 132/60 99 Room Air Intake and Output 03/25/17 03/25/17 03/26/17 15:00 23:00 07:00 Intake Total 360 ml 2760 ml 1150 ml Output Total 1000 ml 1300 ml Balance 360 ml 1760 ml -150 ml Exam Free Text/Dictation Dressing dry Incision clean, dry, and intact without redness or drainage 5/5 Quadriceps, Tibialis Anterior, EHL, Gastroc, Soleus, Peroneals Normal sensation Palpable DT/PT, CR <2 sec No distal edema Results Result Diagram: 03/26/17 0445 03/26/17 0445 ANIA ARCOS PA-C Mar 26, 2017 08:04
[2017-03-26 08:17] VITALS: BP 142/74; RESP 18
[2017-03-26] MEDS: DOCUSATE SODIUM 100 MG CAP PO SCH (08:27)
[2017-03-26] MEDS: PREGABALIN 25 MG CAP PO SCH (08:27)
[2017-03-26] MEDS: PENICILLIN V K 250 MG TAB PO SCH (08:27)
[2017-03-26] MEDS: VANCOMYCIN 1.25 GM in SOD CHLORIDE 0.9% 250 ML IVPB SCH (08:28)
[2017-03-26] MEDS ORDERED: WARFARIN 2 MG TAB PO SCH (09:30)
[2017-03-26] MEDS: SOD FERRIC GLUC COMPLX 125 MG in SOD CHLORIDE 0.9% 100 ML IVPB SCH (11:22)
[2017-03-26] MEDS ORDERED: TRAM50TA2 PO (12:10)
--- NOTE | 2017-03-26 13:21 | DS ---
DATE OF ADMISSION: 03/19/2017 DATE OF DISCHARGE: 03/26/2017 CONDITION UPON DISCHARGE: Fair. ADMITTING DIAGNOSIS: Previous infected left total hip arthroplasty. POSTOPERATIVE DIAGNOSIS: Status post removal of infected revision left total hip arthroplasty and placement of antibiotic-impregnated spacer. PROCEDURE PERFORMED: Irrigation and debridement of left hip, with removal of antibiotic impregnated cement spacer and reimplantation of left total hip arthroplasty with allograft supplementation. HOSPITAL COURSE: This is a 66-year-old male with a very complex past medical history in regards to his left hip who has had multiple infections following total hip arthroplasty. The patient had subsequent surgery 7 months ago where he had an antibiotic impregnated spacer placement into the left hip and was brought back to the operating today for reimplantation of his left total hip arthroplasty. On 03/19/2017 the patient was admitted and taken to the operating room, where he underwent I and D of the left hip, with removal of antibiotic impregnated spacer and reimplantation of his left total hip arthroplasty. The patient tolerated the procedure well. There were no intraoperative complications, but the patient did have a moderate amount of bleeding and required blood transfusion postoperatively. He was taken to the recovery room in stable condition. Pain was well controlled with oral pain medication. He was started on Coumadin and SCDs for DVT prophylaxis. He remained hemodynamically stable and neurovascularly intact, although did require a second blood transfusion during his hospital course. He began physical therapy on postoperative day 1 and continued to make satisfactory progress. During his hospital course cultures were obtained were negative and showed no growth to date. Additionally, he received vancomycin IV, as well as penicillin orally throughout his hospital stay. Ultimately, on postoperative day 7 he was deemed stable for discharge home. Prior to discharge the incision was inspected and noted to be clean, dry and intact. Dressing changes were done prior to the patient going home. LABORATORY ANALYSIS: Upon discharge white blood cell count of 10.3, hemoglobin 9.3, hematocrit 28.9, platelets of 202. Chemistry panel was within normal limits. INR upon discharge was 1.89. DISCHARGE MEDICATIONS: 1. Drexel 7.5/325 mg. 2. Tramadol 50 mg. 3. Coumadin 2 mg. 4. Coumadin 1 mg. 5. Penicillin 500 mg. 6. The patient should resume all of his normal home medications. DISCHARGE INSTRUCTIONS: The patient will be discharged home in stable condition. He is to resume a normal diet, but to avoid green leafy vegetables. He is toe touch weightbearing on the left lower extremity. He will begin physical therapy with home health. He will be discharged home with the medications noted above and is to resume all of his normal home medications. The patient is to call the office or go to the emergency room for any concerns including increased redness, swelling, drainage, fever or any concerns regarding the operation or site of incision. FOLLOWUP: The patient is to follow up in the office on 04/01/2017. Dictated By: ANIA CHAMBERLAIN for GONZALO SPENCE/NICKOLAS Conf#: [id number] DID#: [id number] CHRISTIANA
== END 2017-03-26 13:26 | disposition home health service (06) | DRG 470 ==
LOC: REC 09:07 → ICU 03-20 02:43 → MS2 03-21 12:27 → MS1 03-21 20:40
PROVIDERS: ADMIT Orthopaedic Surgery; ATTEND Orthopaedic Surgery
PROC: 30233N1 Transfusion of Nonautologous Red Blood Cells into Peripheral Vein, Percutaneous Approach (ICD-10-PCS; 2017-03-19)
PROC: 0SRB029 Replacement of Left Hip Joint with Metal on Polyethylene Synthetic Substitute, Cemented, Open Approach (ICD-10-PCS; principal; 2017-03-19 11:30)
DX: T84.52XA Infection and inflammatory reaction due to internal left hip prosthesis, initial encounter (principal); I10 Essential (primary) hypertension; D62 Acute posthemorrhagic anemia; E78.5 Hyperlipidemia, unspecified; R50.9 Fever, unspecified; Z87.891 Personal history of nicotine dependence
CPT/HCPCS: 36430; 71010; 72170; 73500; 73530; 76536; 80048; 80202; 81001; 81003; 82728; 83036; 83540; 83735; 84100; 85014; 85018; 85025; 85610; 85651; 86850; 86900; 86901; 86920; 87070; 87075; 87081; 87086; 87102; 87116; 93971; 97003; 97110; 97116; 97162; 97167; 97530; 97535; C1713; C1762; C1776; J0690; J1100; J1644; J2250; J2370; J2405; J2710; J2916; J3010; J3370; J7030; J7040; J7050; J7120; P9016; P9045; P9047

== ENCOUNTER → 2017-04-01 | Outpatient (CLI) | payer BC ==
[~2017-04-01] MED LIST changes: -3N1 COMMODE MC; -BUPIVACAINE LIPOSOME/PF 266 MG/20 ML VIAL INFIL SCH; -CEFAZOLIN 1 GM INJ ONE; -CEFT2VIA11 IV; -CHOL200043 PO; +COU1 PO; +COU2 PO; -CYAN100018 PO; -ENOX30DI2 SC; -EXPAREL NOTE (BUPIVICAINE LIPOSOMAL) XX SCH; -GABA300C16 PO; +HYDR-3498 PO; -LACTATED RINGER'S 1,000 ML IV SCH; +MUPI15CR9 TOP; -NIAC500T81 PO; -ONDANSETRON 4 MG INJ IV SCH; -OXYC-481 PO; -PAIN COCKTAIL - VANCOMYCIN IRR SCH; +PEN500 PO; -PHENYLephrine (100 MCG/ML) 5ML SYG ONE; -PREGABALIN 300 MG PO X1 PO SCH; +TRAM50TA2 PO; -TRANEXAMIC ACID 1,000 MG in SOD CHLORIDE 0.9% 100 ML IVPB SCH; -TRANEXAMIC ACID 1,000 MG in SOD CHLORIDE 0.9% 90 ML IV SCH; -VANCOMYCIN 1 GM/NS 250 ML X1 BEFORE INCISION IVPB SCH; -WALK1EAC23 MC; -oxyCODONE (CR) 10 MG TAB [oxyCONTIN] X1 DOSE PO SCH; -traMADOL 50 MG TAB X 1 DOSE PO SCH
--- NOTE | 2017-04-01 14:13 | RADRPT ---
PROCEDURE: XR Left Hip and pelvis. CLINICAL INDICATION: Left hip pain. Pelvic pain. TECHNIQUE: Two views. Frontal pelvis and lateral left hip. COMPARISON: 02/20/2017. 03/19/2017. FINDINGS: There are bilateral total hip arthroplasties which appears satisfactory. There is no fracture, disl ocation, or loosening. Left lateral skin odalys are noted. Multiple cerclage wires are noted aroun d the proximal shaft of the left femur. There is no lytic or blastic lesion. IMPRESSION: 1. Satisfactory postoperative appearance of both hips. 2. Left lateral skin odalys noted. RPTAT: QQ .Shivam Davenport MD, MD Date Time Electronically viewed and signed by .Shivam Davenport MD, on 04/01/2017 14:12 .R/
== END | disposition home or self-care (01) ==
LOC: HKI 09:02
PROVIDERS: ATTEND Orthopaedic Surgery
DX: Z47.1 Aftercare following joint replacement surgery (principal); Z96.643 Presence of artificial hip joint, bilateral; M25.552 Pain in left hip; R10.2 Pelvic and perineal pain
CPT/HCPCS: 73502

== ENCOUNTER → 2017-05-01 | Outpatient (CLI) | payer BC ==
[~2017-05-01] MED LIST changes: +3N1 COMMODE MC; +AMIT25TA9 PO; +ASPI-650 PO; +CALC-445 PO; +CEFT2VIA11 IV; +CHOL200043 PO; +CYAN100018 PO; +CYAN500T46 PO; +ENOX30DI2 SC; +GABA300C16 PO; +LANS30TA PO; +LYRI25 PO; +NIAC500T81 PO; +OXYC-481 PO; +PANT40TA4 PO; +RANI150T5 PO; +RIVA10TA PO; +RIVA20TA PO; +WALK1EAC23 MC; +[UNRECOGNIZED DRUG - CODE] PO
--- NOTE | 2017-05-01 14:08 | RADRPT ---
PROCEDURE: XR Left Hip and pelvis. CLINICAL INDICATION: Left hip pain. Pelvic pain. Postop. TECHNIQUE: Two views. Frontal pelvis and frontal left hip. COMPARISON: No prior studies are available for comparison. FINDINGS: There are bilateral total hip arthroplasties. These appear satisfactory with no fracture, dislocati on, or loosening. There is a long stem left femoral head component with multiple cerclage wires in the proximal to mid shaft of the left femur. There is no lytic or blastic lesion. The upper pelvis is not included on the images. IMPRESSION: 1. Satisfactory postoperative appearance of both hips. 2. Otherwise unremarkable study. RPTAT: QQ .Shivam Davenport MD, MD Date Time Electronically viewed and signed by .Shivam Davenport MD, on 05/01/2017 14:08 .R/
== END | disposition home or self-care (01) ==
LOC: HKI 09:07
PROVIDERS: ATTEND Orthopaedic Surgery
DX: T84.52XD Infection and inflammatory reaction due to internal left hip prosthesis, subsequent encounter (principal); Y83.8 Other surgical procedures as the cause of abnormal reaction of the patient, or of later complication, without mention of misadventure at the time of the procedure
CPT/HCPCS: 73502